=== PATIENT | female | born 1945 | race Caucasian/White ===

== ENCOUNTER 2016-07-24 10:04 | Inpatient (IN) | payer MEDICARE, MEDICAID ==
[~2016-07-24] VITALS: Ht 160 cm; Wt 55.7 kg
[~2016-07-24 10:04] MED LIST: ARICEPT10 MG PO; BACLOFEN10 MG PO; BACTRIM DS 8001 TAB PO; CLARITIN10 MG PO; LEXAPRO10 MG PO; MACROBID 1100 MG/CAP PO; MULTIPLE VITAMI1 CAP PO; NEURONTIN100 MG PO; RISPERDAL0.5 MG PO; UNABLE; ZOCOR20 MG PO
[2016-07-24] MEDS ORDERED: [UNRECOGNIZED DRUG - OTHER] (10:29)
[2016-07-24] MEDS ORDERED: MULTI VITAMINS1 TAB PO (10:30)
[2016-07-24] MEDS ORDERED: ARICEPT10 MG PO (10:30)
[2016-07-24] MEDS ORDERED: ZOCOR 20MG20 MG PO (10:30)
[2016-07-24] MEDS ORDERED: LIORESAL20 MG PO (10:31)
[2016-07-24] MEDS ORDERED: NEURONTIN100 MG/CAP PO (10:31)
[2016-07-24] MEDS ORDERED: COLACE 100100 MG/CAP PO (10:32)
[2016-07-24 10:34] LABS: INR 1.3 (0.8-3.0); PROTHROMBIN TIME 14.8 SECONDS (9.7-12.8)
[2016-07-24 10:37] LABS: PARTIAL THROMBOPLASTIN TIME 33.9 SECONDS (26.0-37.0)
[2016-07-24 10:38] LABS: BASO % 0.3 % (0.0-2.0); EOS % 0.2 % (0-4.0); GRAN # 10.4 (1.4-6.5); GRAN % 90.5 % (42.2-75.2); HEMATOCRIT 41.3 % (37.0-47.0); HEMOGLOBIN 12.8 g/dl (12.5-16.0); LYMPH # 0.3 (1.2-3.4); LYMPH % 2.7 % (20.0-51.0); MEAN CELL VOLUME 81 fl (80.0-100.0); MEAN CORPUSCULAR HEMOGLOBIN 25 pg (27.0-31.0); MEAN CORPUSCULAR HGB CONC 31 g/dl (33.0-37.0); MEAN PLATELET VOLUME 10.8 fl (7.4-10.4); MONO # 0.7 (0.1-0.6); MONO % 5.6 % (1.7-9.3); PLATELET COUNT 231 K/mm3 (130-400); RED BLOOD COUNT 5.08 M/mm3 (4.10-5.30); REDCELL DISTRIBUTION WIDTH-CV 15.8 % (11.5-14.5); WHITE BLOOD COUNT 11.5 K/mm3 (4.8-10.8)
[2016-07-24 10:47] LABS: ADJUSTED CALCIUM 9.3 mg/dL (8.4-10.2); ALBUMIN 4.1 gm/dL (3.5-5.0); BILIRUBIN,TOTAL 0.6 mg/dL (0.0-1.0); C-REACTIVE PROTEIN 7.1 mg/dL (0.0-0.9); CALCIUM 9.4 mg/dL (8.4-10.2); CREATININE, serum 0.92 mg/dL (0.52-1.25); POTASSIUM 3.7 mmol/L (3.4-5.0); TOTAL PROTEIN 7.7 gm/dL (6.4-8.2)
[2016-07-24 11:00] LABS: ADD PATHOLOGY DIFF REVIEW NO
[2016-07-24 12:05] LABS: ANISOCYTOSIS 1+; BAND 19 % (0-10); NEUTROPHILS 72 % (42.0-75.2); PLATELET ESTIMATE NORMAL (NORMAL); TOTAL CELLS COUNTED 100
[2016-07-24 12:56] LABS: PH 9 (5-8); SQUAMOUS EPITHELIAL None Seen /hpf; URINE APPEARANCE Hazy; URINE BACTERIA Rare /hpf; URINE BILIRUBIN Negative (NEGATIVE); URINE BLOOD 2+ (NEGATIVE); URINE COLOR Yellow; URINE GLUCOSE Negative (NEGATIVE); URINE KETONE Negative (NEGATIVE); URINE UROBILINOGEN Negative (NEGATIVE); URINE WBC >50 /hpf
[2016-07-24 14:58] VITALS: BP 103/63; PULSE 83; TEMP 98.2
[2016-07-24 16:00] VITALS: BP 95/64; PULSE 72; TEMP 98.3
[2016-07-24 19:45] VITALS: BP 94/72; PULSE 74; TEMP 97.6
[2016-07-25] VITALS (7 sets, daily range): BP systolic 91–123; BP diastolic 56–74; PULSE 72–84; TEMP 96.1–99.3
[2016-07-25 05:48] LABS: BASO % 0.1 % (0.0-2.0); EOS # 0.1 (0.0-0.7); EOS % 1.5 % (0-4.0); GRAN # 7.1 (1.4-6.5); GRAN % 80.1 % (42.2-75.2); LYMPH % 11.3 % (20.0-51.0); MEAN CELL VOLUME 84 fl (80.0-100.0); MEAN CORPUSCULAR HGB CONC 30 g/dl (33.0-37.0); MEAN PLATELET VOLUME 10.4 fl (7.4-10.4); MONO # 0.6 (0.1-0.6); MONO % 6.4 % (1.7-9.3); PLATELET COUNT 206 K/mm3 (130-400); RED BLOOD COUNT 4.03 M/mm3 (4.10-5.30); REDCELL DISTRIBUTION WIDTH-CV 16.1 % (11.5-14.5); WHITE BLOOD COUNT 8.8 K/mm3 (4.8-10.8)
[2016-07-25 05:49] LABS: HEMATOCRIT 33.7 % (37.0-47.0); HEMOGLOBIN 10.2 g/dl (12.5-16.0); MEAN CORPUSCULAR HEMOGLOBIN 25 pg (27.0-31.0)
[2016-07-25 05:56] LABS: ADJUSTED CALCIUM 9.2 mg/dL (8.4-10.2); ALBUMIN 3.2 gm/dL (3.5-5.0); BILIRUBIN,TOTAL 0.4 mg/dL (0.0-1.0); CALCIUM 8.6 mg/dL (8.4-10.2); CREATININE, serum 0.78 mg/dL (0.52-1.25); POTASSIUM 3.5 mmol/L (3.4-5.0); TOTAL PROTEIN 6.2 gm/dL (6.4-8.2)
[2016-07-26 03:53] VITALS: BP 119/70; PULSE 77; TEMP 97.6
[2016-07-26 08:10] LABS: BASO % 0.2 % (0.0-2.0); EOS # 0.2 (0.0-0.7); EOS % 3.6 % (0-4.0); GRAN % 69.7 % (42.2-75.2); LYMPH # 1.2 (1.2-3.4); LYMPH % 20.3 % (20.0-51.0); MEAN CELL VOLUME 84 fl (80.0-100.0); MEAN CORPUSCULAR HGB CONC 30 g/dl (33.0-37.0); MEAN PLATELET VOLUME 10.4 fl (7.4-10.4); MONO # 0.3 (0.1-0.6); MONO % 5.5 % (1.7-9.3); PLATELET COUNT 248 K/mm3 (130-400); RED BLOOD COUNT 4.29 M/mm3 (4.10-5.30); WHITE BLOOD COUNT 5.8 K/mm3 (4.8-10.8)
[2016-07-26 08:14] LABS: HEMATOCRIT 35.9 % (37.0-47.0); HEMOGLOBIN 10.8 g/dl (12.5-16.0); MEAN CORPUSCULAR HEMOGLOBIN 25 pg (27.0-31.0)
[2016-07-26 08:27] LABS: ALBUMIN 3.3 gm/dL (3.5-5.0); CREATININE, serum 0.78 mg/dL (0.52-1.25); PHOSPHOROUS 3.9 mg/dL (2.5-4.5); POTASSIUM 3.4 mmol/L (3.4-5.0)
[2016-07-26 08:36] VITALS: BP 145/82; PULSE 79; TEMP 97.7
[2016-07-26 13:44] VITALS: BP 140/72; PULSE 103; TEMP 98
[2016-07-26 16:24] VITALS: BP 112/54; PULSE 93; TEMP 98.4
[2016-07-26 19:34] VITALS: BP 120/64; PULSE 90; TEMP 98.7
[2016-07-27] VITALS (7 sets, daily range): BP systolic 106–147; BP diastolic 62–94; PULSE 65–87; TEMP 98.2–99.7
[2016-07-28 03:40] VITALS: BP 115/85; PULSE 74; TEMP 100.7
[2016-07-28 08:10] VITALS: BP 124/68; PULSE 64; TEMP 98
[2016-07-28 11:50] VITALS: BP 134/64; PULSE 54; TEMP 98.4
[2016-07-28] MEDS ORDERED: AMOXICILLIN 8751 TAB PO (13:29)
[2016-07-28 15:12] VITALS: BP 134/64; PULSE 54; TEMP 98.4
== END 2016-07-28 16:12 | DRG 698 ==
LOC: COL.ER 10:04 → IMCU 14:14 → MEDICAL 07-25 17:31
PROVIDERS: Emergency Medicine; Internal Medicine
DX: T83.511A Infection and inflammatory reaction due to indwelling urethral catheter, initial encounter (principal); A41.89 Other specified sepsis; A52.17 General paresis; T83.021A Displacement of indwelling urethral catheter, initial encounter; G35 Multiple sclerosis; N31.9 Neuromuscular dysfunction of bladder, unspecified; L89.892 Pressure ulcer of other site, stage 2; F03.90 Unspecified dementia, unspecified severity, without behavioral disturbance, psychotic disturbance, mood disturbance, and anxiety; F32.89 Other specified depressive episodes; B95.2 Enterococcus as the cause of diseases classified elsewhere
CPT/HCPCS: 90791-AI; 99232-AI; 99233-AI; 99238; J0696; J1650; J7030

== ENCOUNTER 2017-06-29 06:03 | Emergency (ER) | payer MEDICARE, MEDICAID ==
[~2017-06-29] VITALS: Ht 165.1 cm; Wt 68.2 kg
[2017-06-29 06:03] VITALS: TEMP 97.9
[~2017-06-29 06:03] MED LIST changes: +AMOXICILLIN 8751 TAB PO; +COLACE 100100 MG/CAP PO; +LIORESAL20 MG PO; +MULTI VITAMINS1 TAB PO; +NEURONTIN100 MG/CAP PO; +ZOCOR 20MG20 MG PO; +[UNRECOGNIZED DRUG - OTHER]
[2017-06-29 07:44] VITALS: BP 119/81; PULSE 75
== END 2017-06-29 09:46 | disposition home or self-care (01) ==
LOC: COL.ER 06:03
DX: M25.512 Pain in left shoulder (principal); R51 Headache; R40.2412 Glasgow coma scale score 13-15, at arrival to emergency department; F03.90 Unspecified dementia, unspecified severity, without behavioral disturbance, psychotic disturbance, mood disturbance, and anxiety; E78.5 Hyperlipidemia, unspecified; G35 Multiple sclerosis; G83.10 Monoplegia of lower limb affecting unspecified side; W06.XXXA Fall from bed, initial encounter; Y92.129 Unspecified place in nursing home as the place of occurrence of the external cause

== ENCOUNTER → 2018-03-03 | Outpatient (CLI) | payer MEDICARE, MEDICAID | LOC: COL.RAD 07:30 | DX: M34.0 Progressive systemic sclerosis (principal); M41.86 Other forms of scoliosis, lumbar region; G31.9 Degenerative disease of nervous system, unspecified; G95.9 Disease of spinal cord, unspecified; M43.12 Spondylolisthesis, cervical region; M47.814 Spondylosis without myelopathy or radiculopathy, thoracic region | CPT/HCPCS: A9585 ==

== ENCOUNTER 2018-04-03 22:39 | Inpatient (IN) | payer MEDICARE, MEDICAID ==
[~2018-04-03] VITALS: Ht 157.5 cm; Wt 64.4 kg
[~2018-04-03 22:39] MED LIST changes: -[UNRECOGNIZED DRUG - OTHER]; +[UNRECOGNIZED DRUG - OTHER] TP
[2018-04-03 23:39] LABS: COLLECTION METHOD CATHETER
[2018-04-03 23:41] LABS: BASO % 0.2 % (0.0-2.0); EOS # 0.1 (0.0-0.7); EOS % 0.6 % (0-4.0); GRAN # 8.6 (1.4-6.5); GRAN % 76.8 % (42.2-75.2); HEMOGLOBIN 12.6 g/dl (12.5-16.0); LYMPH # 1.6 (1.2-3.4); LYMPH % 14.2 % (20.0-51.0); MEAN CELL VOLUME 87 fl (80.0-100.0); MEAN CORPUSCULAR HEMOGLOBIN 27 pg (27.0-31.0); MEAN CORPUSCULAR HGB CONC 31 g/dl (33.0-37.0); MEAN PLATELET VOLUME 10.5 fl (7.4-10.4); MONO # 0.9 (0.1-0.6); MONO % 7.8 % (1.7-9.3); PLATELET COUNT 246 K/mm3 (130-400); RED BLOOD COUNT 4.73 M/mm3 (4.10-5.30)
[2018-04-03 23:49] LABS: PH 9 (5-8); SQUAMOUS EPITHELIAL None Seen /hpf; URINE APPEARANCE Cloudy; URINE BACTERIA Rare /hpf; URINE BILIRUBIN Negative (NEGATIVE); URINE BLOOD Negative (NEGATIVE); URINE COLOR Yellow; URINE GLUCOSE Negative (NEGATIVE); URINE KETONE Negative (NEGATIVE); URINE LEUKOCYTE ESTERASE 3+ (NEGATIVE); URINE NITRATE Negative (NEGATIVE); URINE PROTEIN(semi-quant) 1+ (NEGATIVE); URINE UROBILINOGEN Negative (NEGATIVE)
[2018-04-03 23:55] LABS: ALANINE AMINOTRANSFERASE 53 U/L (9-52); ALBUMIN 3.6 gm/dL (3.5-5.0); ALKALINE PHOSPHATASE 152 U/L (50-136); ANION GAP 5 mmol/L (7-16); AST,SGOT 55 U/L (15-37); BILIRUBIN,TOTAL 0.3 mg/dL (0.0-1.0); BLOOD UREA NITROGEN 21 mg/dL (7-17); C-REACTIVE PROTEIN 6.1 mg/dL (0.0-0.9); CALCIUM 8.5 mg/dL (8.4-10.2); CARBON DIOXIDE 29 mmol/L (22-30); CHLORIDE 111 mmol/L (98-107); CREATININE, serum 0.81 mg/dL (0.52-1.25); GLUCOSE 110 mg/dL (74-106); POTASSIUM 4.7 mmol/L (3.4-5.0); SODIUM 144 mmol/L (137-145); TOTAL PROTEIN 6.9 gm/dL (6.4-8.2)
[2018-04-04] VITALS (9 sets, daily range): BP systolic 83–143; BP diastolic 55–86; PULSE 66–117; TEMP 98.4–100.7
[2018-04-04 00:04] LABS: TROPONIN-I < 0.012 ng/mL (0.000-0.034)
[2018-04-04 00:30] LABS: ARTERIAL BLD GAS O2 SATURATION 96.5 % (92-100); ARTERIAL BLOOD GAS BASE EXCESS -2.8 (-2-2); ARTERIAL BLOOD GAS HCO3 22.7 meq/L (22-26); ARTERIAL BLOOD GAS PCO2 42.1 mmHg (35-45); ARTERIAL BLOOD GAS PO2 92.6 mmHg (80-100); ARTERIAL BLOOD GAS pH 7.35 (7.35-7.45)
[2018-04-04] MEDS ORDERED: TYLENOL SU650 MG/SUP RC (00:52)
[2018-04-04] MEDS ORDERED: ARICEPT10 MG PO (00:53)
[2018-04-04] MEDS ORDERED: NEURONTIN300 MG/CAP PO (00:55)
[2018-04-04] MEDS ORDERED: ICAPS TABLET1 EACH PO (00:56)
[2018-04-04] MEDS ORDERED: MILK OF MA1200 MG/5 PO (00:57)
[2018-04-04] MEDS ORDERED: REMERON30 MG PO (00:58)
[2018-04-04] MEDS ORDERED: NAMENDA 10MG TA10 MG PO (00:58)
[2018-04-04] MEDS ORDERED: ULTRAM 50MG TAB50 MG PO (01:24)
[2018-04-04] MEDS ORDERED: TYLENOL 500MG500 MG PO (01:25)
[2018-04-04] MEDS ORDERED: ZOCOR 20MG20 MG PO (01:26)
[2018-04-04] MEDS ORDERED: SEROQUEL 2525 MG/TAB PO (03:26)
[2018-04-04] MEDS ORDERED: PROTEIN SUPPLEMENT PO (03:31)
[2018-04-04 04:48] LABS: BASO % 0.3 % (0.0-2.0); EOS # 0.1 (0.0-0.7); GRAN # 5.7 (1.4-6.5); GRAN % 60.2 % (42.2-75.2); HEMOGLOBIN 10.9 g/dl (12.5-16.0); LYMPH # 2.7 (1.2-3.4); LYMPH % 28.5 % (20.0-51.0); MEAN CELL VOLUME 88 fl (80.0-100.0); MEAN CORPUSCULAR HEMOGLOBIN 27 pg (27.0-31.0); MEAN CORPUSCULAR HGB CONC 30 g/dl (33.0-37.0); MEAN PLATELET VOLUME 10.6 fl (7.4-10.4); MONO # 0.9 (0.1-0.6); MONO % 9.8 % (1.7-9.3); PLATELET COUNT 242 K/mm3 (130-400); RED BLOOD COUNT 4.09 M/mm3 (4.10-5.30); REDCELL DISTRIBUTION WIDTH-CV 17.2 % (11.5-14.5)
[2018-04-04 04:50] LABS: HEMATOCRIT 36.1 % (37.0-47.0)
[2018-04-04 04:54] LABS: INR 1.2 (0.8-3.0); PROTHROMBIN TIME 13.6 SECONDS (9.7-12.8)
[2018-04-04 04:57] LABS: PARTIAL THROMBOPLASTIN TIME 32.7 SECONDS (26.0-37.0)
[2018-04-04 11:09] LABS: ARTERIAL BLD GAS O2 SATURATION 97.3 % (92-100); ARTERIAL BLD GAS TCO2 CT 21.7; ARTERIAL BLOOD GAS BASE EXCESS -5.4 (-2-2); ARTERIAL BLOOD GAS HCO3 20.5 meq/L (22-26); ARTERIAL BLOOD GAS PCO2 41.3 mmHg (35-45); ARTERIAL BLOOD GAS PO2 108.2 mmHg (80-100); ARTERIAL BLOOD GAS pH 7.31 (7.35-7.45)
[2018-04-05] VITALS (7 sets, daily range): BP systolic 128–141; BP diastolic 71–90; PULSE 80–92; TEMP 98.2–99.4
[2018-04-05 05:37] LABS: ARTERIAL BLD GAS O2 SATURATION 93.1 % (92-100); ARTERIAL BLD GAS TCO2 CT 27.6; ARTERIAL BLOOD GAS BASE EXCESS 0.3 (-2-2); ARTERIAL BLOOD GAS HCO3 26.1 meq/L (22-26); ARTERIAL BLOOD GAS PO2 67.3 mmHg (80-100); ARTERIAL BLOOD GAS pH 7.36 (7.35-7.45)
[2018-04-05 05:43] LABS: BASO % 0.3 % (0.0-2.0); EOS # 0.1 (0.0-0.7); EOS % 1.2 % (0-4.0); GRAN % 74.1 % (42.2-75.2); HEMATOCRIT 37.4 % (37.0-47.0); HEMOGLOBIN 11.2 g/dl (12.5-16.0); LYMPH # 1.2 (1.2-3.4); LYMPH % 17.7 % (20.0-51.0); MEAN CELL VOLUME 88 fl (80.0-100.0); MEAN CORPUSCULAR HEMOGLOBIN 26 pg (27.0-31.0); MEAN CORPUSCULAR HGB CONC 30 g/dl (33.0-37.0); MEAN PLATELET VOLUME 10.3 fl (7.4-10.4); MONO # 0.4 (0.1-0.6); MONO % 6.4 % (1.7-9.3); PLATELET COUNT 173 K/mm3 (130-400); RED BLOOD COUNT 4.25 M/mm3 (4.10-5.30)
[2018-04-05 05:48] LABS: INR 1.2 (0.8-3.0); PROTHROMBIN TIME 13.8 SECONDS (9.7-12.8)
[2018-04-05 05:59] LABS: ALBUMIN 3.3 gm/dL (3.5-5.0); BILIRUBIN,TOTAL 0.4 mg/dL (0.0-1.0); CALCIUM 8.8 mg/dL (8.4-10.2); CREATININE, serum 0.74 mg/dL (0.52-1.25); TOTAL PROTEIN 6.6 gm/dL (6.4-8.2)
[2018-04-06 00:18] VITALS: BP 145/84; PULSE 77; TEMP 98
[2018-04-06 04:10] VITALS: BP 139/89; PULSE 88; TEMP 97.1
[2018-04-06 05:42] LABS: ARTERIAL BLOOD GAS PCO2 46.8 mmHg (35-45); ARTERIAL BLOOD GAS pH 7.38 (7.35-7.45)
[2018-04-06 05:43] LABS: ARTERIAL BLD GAS O2 SATURATION 93.3 % (92-100); ARTERIAL BLOOD GAS BASE EXCESS 1.2 (-2-2); ARTERIAL BLOOD GAS HCO3 26.8 meq/L (22-26); ARTERIAL BLOOD GAS PO2 67.8 mmHg (80-100)
[2018-04-06 06:17] LABS: BASO % 0.3 % (0.0-2.0); EOS # 0.1 (0.0-0.7); EOS % 1.5 % (0-4.0); GRAN # 5.5 (1.4-6.5); GRAN % 73.4 % (42.2-75.2); HEMOGLOBIN 10.3 g/dl (12.5-16.0); LYMPH # 1.4 (1.2-3.4); LYMPH % 18.8 % (20.0-51.0); MEAN CELL VOLUME 86 fl (80.0-100.0); MEAN CORPUSCULAR HEMOGLOBIN 27 pg (27.0-31.0); MEAN CORPUSCULAR HGB CONC 31 g/dl (33.0-37.0); MEAN PLATELET VOLUME 10.1 fl (7.4-10.4); MONO # 0.4 (0.1-0.6); MONO % 5.6 % (1.7-9.3); PLATELET COUNT 209 K/mm3 (130-400); RED BLOOD COUNT 3.89 M/mm3 (4.10-5.30); REDCELL DISTRIBUTION WIDTH-CV 16.7 % (11.5-14.5)
[2018-04-06 06:21] LABS: HEMATOCRIT 33.5 % (37.0-47.0)
[2018-04-06 06:23] LABS: INR 1.2 (0.8-3.0); PROTHROMBIN TIME 13.9 SECONDS (9.7-12.8)
[2018-04-06 06:28] LABS: ALBUMIN 3.3 gm/dL (3.5-5.0); BILIRUBIN,TOTAL 0.2 mg/dL (0.0-1.0); CALCIUM 8.8 mg/dL (8.4-10.2); CREATININE, serum 0.83 mg/dL (0.52-1.25); POTASSIUM 3.3 mmol/L (3.4-5.0); TOTAL PROTEIN 6.6 gm/dL (6.4-8.2)
[2018-04-06 07:36] VITALS: BP 139/76; PULSE 78; TEMP 97.9
[2018-04-06 11:18] VITALS: BP 133/76; PULSE 85; TEMP 98.4
[2018-04-06 15:43] VITALS: BP 142/73; PULSE 99; TEMP 98.7
[2018-04-06 20:29] VITALS: BP 137/80; PULSE 83; TEMP 98.8
[2018-04-07 00:03] VITALS: BP 162/103; PULSE 85; TEMP 99.2
[2018-04-07 00:16] VITALS: BP 150/92
[2018-04-07 04:36] VITALS: BP 127/86; PULSE 79; TEMP 98.5
[2018-04-07 06:11] LABS: BASO % 0.4 % (0.0-2.0); EOS # 0.1 (0.0-0.7); GRAN # 6.4 (1.4-6.5); GRAN % 75.8 % (42.2-75.2); HEMOGLOBIN 10.6 g/dl (12.5-16.0); LYMPH # 1.3 (1.2-3.4); LYMPH % 15.7 % (20.0-51.0); MEAN CELL VOLUME 86 fl (80.0-100.0); MEAN CORPUSCULAR HEMOGLOBIN 27 pg (27.0-31.0); MEAN CORPUSCULAR HGB CONC 31 g/dl (33.0-37.0); MEAN PLATELET VOLUME 10.2 fl (7.4-10.4); MONO # 0.5 (0.1-0.6); PLATELET COUNT 234 K/mm3 (130-400); RED BLOOD COUNT 3.99 M/mm3 (4.10-5.30); REDCELL DISTRIBUTION WIDTH-CV 16.6 % (11.5-14.5)
[2018-04-07 06:12] LABS: HEMATOCRIT 34.3 % (37.0-47.0)
[2018-04-07 06:17] LABS: INR 1.2 (0.8-3.0); PROTHROMBIN TIME 13.5 SECONDS (9.7-12.8)
[2018-04-07 06:21] LABS: ALBUMIN 3.6 gm/dL (3.5-5.0); BILIRUBIN,TOTAL 0.3 mg/dL (0.0-1.0); CALCIUM 8.8 mg/dL (8.4-10.2); CREATININE, serum 0.82 mg/dL (0.52-1.25); POTASSIUM 3.4 mmol/L (3.4-5.0); TOTAL PROTEIN 6.9 gm/dL (6.4-8.2)
[2018-04-07 08:30] VITALS: BP 142/82; PULSE 82; TEMP 98.7
[2018-04-07 12:00] VITALS: BP 140/80; PULSE 80; TEMP 98
[2018-04-07] MEDS ORDERED: AMOXICILLIN 8751 TAB PO (12:21)
[2018-04-07 13:43] VITALS: BP 140/80; PULSE 80; TEMP 98
== END 2018-04-07 13:30 | DRG 698 ==
LOC: COL.ER 22:39 → ICU 04-04 00:26 → MEDICAL 04-05 14:06
PROVIDERS: Emergency Medicine; Family Medicine; Hospitalist
PROC: 02HV33Z Insertion of Infusion Device into Superior Vena Cava, Percutaneous Approach (ICD-10-PCS; principal; 2018-04-04)
DX: T83.511A Infection and inflammatory reaction due to indwelling urethral catheter, initial encounter (principal); R65.21 Severe sepsis with septic shock; J96.02 Acute respiratory failure with hypercapnia; J96.01 Acute respiratory failure with hypoxia; A41.9 Sepsis, unspecified organism; G04.1 Tropical spastic paraplegia; E87.0 Hyperosmolality and hypernatremia; Z66 Do not resuscitate; N39.0 Urinary tract infection, site not specified; F03.90 Unspecified dementia, unspecified severity, without behavioral disturbance, psychotic disturbance, mood disturbance, and anxiety; L89.312 Pressure ulcer of right buttock, stage 2; G35 Multiple sclerosis; N31.9 Neuromuscular dysfunction of bladder, unspecified; E11.9 Type 2 diabetes mellitus without complications; E78.5 Hyperlipidemia, unspecified; E87.8 Other disorders of electrolyte and fluid balance, not elsewhere classified; B96.4 Proteus (mirabilis) (morganii) as the cause of diseases classified elsewhere
CPT/HCPCS: 99223-AI; 99232-AI; 99239; G0463; J1644; J2543; J7030; J7060; J7120

== ENCOUNTER 2018-09-21 12:35 | Day surgery (SDC) | payer MEDICARE, MEDICAID ==
[~2018-09-21] VITALS: Ht 157.5 cm; Wt 113.6 kg
[~2018-09-21 12:35] MED LIST changes: +ICAPS TABLET1 EACH PO; +MILK OF MA1200 MG/5 PO; +NAMENDA 10MG TA10 MG PO; +NEURONTIN300 MG/CAP PO; +PROTEIN SUPPLEMENT PO; +REMERON30 MG PO; +SEROQUEL 2525 MG/TAB PO; +TYLENOL 500MG500 MG PO; +TYLENOL SU650 MG/SUP RC; +ULTRAM 50MG TAB50 MG PO
[2018-09-21 13:19] VITALS: BP 118/79; PULSE 84; TEMP 97.8
[2018-09-21 16:50] VITALS: BP 118/73; PULSE 88; TEMP 97.7
--- NOTE | 2018-09-21 16:50 | NUR ---
The patient appears to be resting comfortably on the cart. The patient denies any pain or nausea at this time. The patient's post operative carlos signs were started at this time. The patient has a drainage sponge around the catheter insertion site which is secured with medipore tape and appears clean, dry, and intact. Theh patient's catheter is secured to her right leg with a stat lock and set to dependent drainage with red tinged urine present in the tubing. The patient agrees to try some cranberry juice. Will continue to monitor the patient.
[2018-09-21 17:05] VITALS: BP 116/69; PULSE 79
--- NOTE | 2018-09-21 17:05 | NUR ---
The patient appears to be tolerate the juice well without any complaints of nausesa. The patient continues to deny any pain at this time. Vital signs appear stable. Will continue to monitor the patient.
[2018-09-21 17:20] VITALS: BP 126/79; PULSE 79
--- NOTE | 2018-09-21 17:20 | NUR ---
The patient has finished her juice and is being assisted to change back in her clothes at this time. The patient's IV to her left wrist was removed and a pressure dressing was applied to the site.
[2018-09-21] MEDS ORDERED: NORCO 325 MG-51 TAB PO (17:29)
[2018-09-21] MEDS ORDERED: COLACE 100100 MG/CAP PO (17:29)
[2018-09-21 17:44] VITALS: TEMP 98.3
--- NOTE | 2018-09-21 17:45 | NUR ---
The patient was transferred back to her personal wheelchair from the cart with the total lift and the assistance of three nurses and appeared to tolerate the activity well.
[2018-09-21 17:57] VITALS: BP 118/73; PULSE 87
--- NOTE | 2018-09-21 18:10 | NUR ---
The patient was escorted out to the transportation vehicle by RILEY Glynn via her personal wheelchair at this time. The patient's belongings and discharge paperwork were sent with her. The independent driver is present to drive her back to the [facility].
--- NOTE | 2018-09-21 18:20 | NUR ---
Report was called to Francy, the nurse who will be assuming the care of the patient, at the [facility]. She veberalized understanding and questions were answered at this time.
== END 2018-09-21 18:20 ==
LOC: SDCO 12:35
DX: N31.9 Neuromuscular dysfunction of bladder, unspecified (principal); R32 Unspecified urinary incontinence; Z79.899 Other long term (current) drug therapy; G35 Multiple sclerosis; E11.9 Type 2 diabetes mellitus without complications; Z87.440 Personal history of urinary (tract) infections; F03.90 Unspecified dementia, unspecified severity, without behavioral disturbance, psychotic disturbance, mood disturbance, and anxiety; F32.9 Major depressive disorder, single episode, unspecified; F31.9 Bipolar disorder, unspecified; I10 Essential (primary) hypertension; E78.00 Pure hypercholesterolemia, unspecified; E78.5 Hyperlipidemia, unspecified; Z86.19 Personal history of other infectious and parasitic diseases; Z99.3 Dependence on wheelchair
CPT/HCPCS: C1769; J0690; J1100; J2370; J2405; J2704; J3010; J7120

== ENCOUNTER 2018-10-28 11:48 | Inpatient (IN) | payer MEDICARE, MEDICAID ==
[~2018-10-28] VITALS: Ht 157.5 cm; Wt 68.1 kg
[~2018-10-28 11:48] MED LIST changes: +NORCO 325 MG-51 TAB PO
[2018-10-28 12:49] LABS: BASO % 0.2 % (0.0-2.0); EOS # 0.4 (0.0-0.7); EOS % 3.4 % (0-4.0); GRAN # 10.1 (1.4-6.5); HEMATOCRIT 45.9 % (37.0-47.0); HEMOGLOBIN 14.4 g/dl (12.5-16.0); LYMPH # 1.3 (1.2-3.4); LYMPH % 10.8 % (20.0-51.0); MEAN CELL VOLUME 86 fl (80.0-100.0); MEAN CORPUSCULAR HEMOGLOBIN 27 pg (27.0-31.0); MEAN CORPUSCULAR HGB CONC 31 g/dl (33.0-37.0); MEAN PLATELET VOLUME 10.4 fl (7.4-10.4); MONO # 0.5 (0.1-0.6); MONO % 4.3 % (1.7-9.3); PLATELET COUNT 310 K/mm3 (130-400); RED BLOOD COUNT 5.35 M/mm3 (4.10-5.30); REDCELL DISTRIBUTION WIDTH-CV 16.3 % (11.5-14.5)
[2018-10-28 12:58] LABS: COLLECTION METHOD CLEAN CATCH
[2018-10-28 12:58] LABS: INR 1.1 (0.8-3.0); PROTHROMBIN TIME 12.3 SECONDS (9.7-12.8)
[2018-10-28 13:04] LABS: ALANINE AMINOTRANSFERASE 18 U/L (9-52); ALBUMIN 4.2 gm/dL (3.5-5.0); ALKALINE PHOSPHATASE 181 U/L (50-136); ANION GAP 13 mmol/L (7-16); AST,SGOT 24 U/L (15-37); BILIRUBIN,TOTAL 0.3 mg/dL (0.0-1.0); BLOOD UREA NITROGEN 20 mg/dL (7-17); C-REACTIVE PROTEIN 5.1 mg/dL (0.0-0.9); CALCIUM 9.4 mg/dL (8.4-10.2); CARBON DIOXIDE 25 mmol/L (22-30); CHLORIDE 106 mmol/L (98-107); CREATININE, serum 0.65 (0.52-1.25); GLUCOSE 109 mg/dL (74-106); POTASSIUM 4.4 mmol/L (3.4-5.0); SODIUM 144 mmol/L (137-145)
[2018-10-28 13:07] LABS: AMORPHOUS CRYSTAL Present /uL; PH 8 (5-8); SQUAMOUS EPITHELIAL 0-2 /hpf; URINE APPEARANCE Cloudy; URINE BACTERIA Rare /hpf; URINE BILIRUBIN Negative (NEGATIVE); URINE BLOOD Negative (NEGATIVE); URINE CALCIUM OXALATE CRYSTAL Present /hpf; URINE COLOR Yellow; URINE GLUCOSE Negative (NEGATIVE); URINE KETONE Negative (NEGATIVE); URINE LEUKOCYTE ESTERASE 2+ (NEGATIVE); URINE NITRATE Negative (NEGATIVE); URINE PROTEIN(semi-quant) 1+ (NEGATIVE); URINE UROBILINOGEN Negative (NEGATIVE)
[2018-10-28 13:30] LABS: TROPONIN-I < 0.012 ng/mL (0.000-0.035)
--- NOTE | 2018-10-28 16:15 | NUR ---
Patient up from OR. Alert and oriented x 3. Linen change, patient had dawson liquid stool. Notified Hospitalist, stool appears like C-diff. Pericare provided. Patient placed in contact isolation. Suprapubic catheter in place with redness noted around site. Palacio to dependent drainage with cloudy urine present. Palacio tubing contains lots of sediment and mucus. Replaced tubing. Bilateral lower extremities with decreased muscle tone, wearing airboots. Hospitalist in to see patient. Denies pain or further needs at this time.
[2018-10-28 16:44] VITALS: BP 118/74; PULSE 103; TEMP 98.9
--- NOTE | 2018-10-28 18:23 | NUR ---
Contacted Nessa WONG, Tele called, patient HR in 116's and not decreasing. Will continue to monitor. Will report off to assembler 1st shift.
[2018-10-28 19:55] VITALS: BP 133/80; PULSE 102; TEMP 98.7
--- NOTE | 2018-10-28 20:00 | NUR ---
SHIFT ASSESSMENT COMPLETED AT 1999. PATIENT ALERT AND AWAKE DURING VISIT. REPORTS BEING VERY TIRED. SEE FLOW SHEET FOR FVS OBTAINED. MILD TACHYCARDIA. TELEMETRY MONITORING CONTINUED ORDERED. NS INFUSING AT 150ML/HR ORDERED. REPORTING GENRALIZED PAIN @ "2-3". SCHEDULED HS MEDICATIONS FOR PAIN ADMINISTERED. REPOSITIONED WITH PILLOWS. PATIENT REPORTS BEING MORE COMFORTABLE. DIET ORDER RECEIVED FROM HOSPITALIST SHAYLA. ICE WATER AND JELLO PROVIDED PER REQUEST. DENIES FURTHER NEEDS AT END OF VISIT
[2018-10-28 23:14] VITALS: BP 115/57; PULSE 98; TEMP 98.3
[2018-10-29 04:55] VITALS: BP 106/58; PULSE 93; TEMP 97.7
[2018-10-29 06:44] LABS: BASO % 0.1 % (0.0-2.0); EOS # 0.3 (0.0-0.7); EOS % 4.5 % (0-4.0); GRAN # 4.6 (1.4-6.5); GRAN % 66.3 % (42.2-75.2); HEMOGLOBIN 11.1 g/dl (12.5-16.0); LYMPH # 1.4 (1.2-3.4); LYMPH % 19.6 % (20.0-51.0); MEAN CELL VOLUME 88 fl (80.0-100.0); MEAN CORPUSCULAR HEMOGLOBIN 26 pg (27.0-31.0); MEAN CORPUSCULAR HGB CONC 30 g/dl (33.0-37.0); MEAN PLATELET VOLUME 9.9 fl (7.4-10.4); MONO # 0.7 (0.1-0.6); MONO % 9.4 % (1.7-9.3); PLATELET COUNT 211 K/mm3 (130-400); RED BLOOD COUNT 4.19 M/mm3 (4.10-5.30); REDCELL DISTRIBUTION WIDTH-CV 16.6 % (11.5-14.5)
[2018-10-29 06:53] LABS: BILIRUBIN,TOTAL 0.2 mg/dL (0.0-1.0); CALCIUM 8.2 mg/dL (8.4-10.2); CREATININE, serum 0.65 (0.52-1.25); POTASSIUM 4.1 mmol/L (3.4-5.0); TOTAL PROTEIN 5.8 gm/dL (6.4-8.2)
[2018-10-29 07:59] VITALS: BP 122/76; PULSE 96; TEMP 98.2
--- NOTE | 2018-10-29 09:55 | NUR ---
Pt continues to rest in bed. She is drowsy but arousable. She denies pain or discomfort. IVF are infusing without difficulty. Palacio cath to DD is draining without difficulty, urine is clear and yellow. Pt denies wanting any breakfast this AM. Repositioned at this time.
[2018-10-29 11:15] VITALS: BP 132/70; PULSE 89; TEMP 98.4
[2018-10-29 16:09] VITALS: BP 133/75; PULSE 87; TEMP 98.1
--- NOTE | 2018-10-29 16:12 | NUR ---
SW met with patient to discuss discharge planning. Patient lives at [facility] and plans to return there upon discharge. Patient's PCP is Dr Pérez and medications are obtained from [facility] in [place]. Patient has home O2 and uses a wheelchair. Patient does have a DPOA-HC and a copy is in the EMR. SW will continue to follow.
--- NOTE | 2018-10-29 18:02 | NUR ---
Pt has an uneventful shift. She continues to deny needs other than chapstick. Palacio cath has had good output throughout shift.
[2018-10-29 19:39] VITALS: BP 135/71; PULSE 96; TEMP 99.1
--- NOTE | 2018-10-29 20:30 | NUR ---
Shift assessment complete. Pt resting in bed, awake, a&o c occasional confused/forgetfull statements, cooperative c cares. Pt c/o headache et chronic generalized pain; scheduled Ultram admin c HS meds. Pt denies any other c/o. IV patent. Tele in place. O2 per NC. Pt denies further needs at this time. Call light in reach, bed alarm on. Will monitor.
[2018-10-29 23:10] VITALS: BP 132/71; PULSE 89; TEMP 99.5
[2018-10-30 03:54] VITALS: BP 118/55; PULSE 93; TEMP 98.3
[2018-10-30 08:13] LABS: EOS # 0.4 (0.0-0.7); EOS % 4.3 % (0-4.0); GRAN # 5.9 (1.4-6.5); GRAN % 70.6 % (42.2-75.2); HEMATOCRIT 37.1 % (37.0-47.0); HEMOGLOBIN 11.1 g/dl (12.5-16.0); LYMPH # 1.4 (1.2-3.4); LYMPH % 17.2 % (20.0-51.0); MEAN CELL VOLUME 87 fl (80.0-100.0); MEAN CORPUSCULAR HEMOGLOBIN 26 pg (27.0-31.0); MEAN CORPUSCULAR HGB CONC 30 g/dl (33.0-37.0); MEAN PLATELET VOLUME 10.8 fl (7.4-10.4); MONO # 0.6 (0.1-0.6); MONO % 7.5 % (1.7-9.3); PLATELET COUNT 208 K/mm3 (130-400); RED BLOOD COUNT 4.25 M/mm3 (4.10-5.30); REDCELL DISTRIBUTION WIDTH-CV 16.2 % (11.5-14.5)
[2018-10-30 08:22] LABS: ALBUMIN 3.3 gm/dL (3.5-5.0); BILIRUBIN,TOTAL 0.2 mg/dL (0.0-1.0); CALCIUM 8.7 mg/dL (8.4-10.2); CREATININE, serum 0.67 (0.52-1.25); POTASSIUM 3.3 mmol/L (3.4-5.0); TOTAL PROTEIN 6.5 gm/dL (6.4-8.2)
[2018-10-30 08:30] VITALS: BP 114/65; PULSE 85; TEMP 98.4
--- NOTE | 2018-10-30 09:12 | NUR ---
Pt awake and alert upon entry, no C/O pain at this time, shift assessments complete, left Pt call light in reach, bed in lowest position.
[2018-10-30] MEDS ORDERED: CEFTIN500 MG PO (09:28)
[2018-10-30] MEDS ORDERED: ULTRAM 50MG TAB50 MG PO (09:34)
[2018-10-30] MEDS ORDERED: NORCO 325 MG-51 TAB PO (09:34)
--- NOTE | 2018-10-30 11:06 | NUR ---
JUAN R update, patient scheduled to DC today to [place]. JUAN R sent and awaiting transport time. Will [facility] staff and family of status. Nurse to Nurse will need to be completed at opt 2 Tisha
--- NOTE | 2018-10-30 13:33 | NUR ---
Pt discharged to senior living in [place], escorted to vehicle by this nurse, left via facilities transportation, called report to the nursing department.
== END 2018-10-30 13:59 | disposition home or self-care (01) | DRG 698 ==
LOC: COL.ER 11:48 → MEDICAL 13:42
PROVIDERS: Emergency Medicine; Nurse Practitioner Family; ADMIT Student in an Organized Health Care Education/Training Program
DX: T83.511A Infection and inflammatory reaction due to indwelling urethral catheter, initial encounter (principal); A41.9 Sepsis, unspecified organism; G11.4 Hereditary spastic paraplegia; E87.2 Acidosis; N39.0 Urinary tract infection, site not specified; G35 Multiple sclerosis; L89.90 Pressure ulcer of unspecified site, unspecified stage; F31.9 Bipolar disorder, unspecified; H35.30 Unspecified macular degeneration; Y84.6 Urinary catheterization as the cause of abnormal reaction of the patient, or of later complication, without mention of misadventure at the time of the procedure; E87.6 Hypokalemia; B96.4 Proteus (mirabilis) (morganii) as the cause of diseases classified elsewhere; E78.00 Pure hypercholesterolemia, unspecified; N31.9 Neuromuscular dysfunction of bladder, unspecified; R53.81 Other malaise; E11.9 Type 2 diabetes mellitus without complications; Z99.81 Dependence on supplemental oxygen; Z79.891 Long term (current) use of opiate analgesic
CPT/HCPCS: 99222-AI; 99232-AI; 99239; A4216; A9284; J0692; J0696; J1650; J7030

== ENCOUNTER 2019-01-03 14:41 | Day surgery (SDC) | payer MEDICARE, MEDICAID ==
[~2019-01-03] VITALS: Ht 157.5 cm; Wt 66.4 kg
[~2019-01-03 14:41] MED LIST changes: +CEFTIN500 MG PO
--- NOTE | 2019-01-03 15:00 | NUR ---
Patient SpO2 level was between 89-92% on room air during admission vital signs. Patient placed on 2L nasal cannula.
[2019-01-03] MEDS ORDERED: ARICEPT10 MG PO (15:23)
[2019-01-03] MEDS ORDERED: [UNRECOGNIZED DRUG - OTHER] PO (15:27)
[2019-01-03] MEDS ORDERED: PROTEIN SUPPLEMENT PO (15:29)
[2019-01-03 15:56] VITALS: BP 114/68; PULSE 95; TEMP 98.3
--- NOTE | 2019-01-03 16:01 | NUR ---
Initial visit; Prayer request prior to surgical procedure. Storage Facility Housekeeper offered prayer and Susie joined her in saying the Lord's Prayer.
--- NOTE | 2019-01-03 17:30 | NUR ---
Dr Mendoza into see patient at this time.
[2019-01-03 18:12] VITALS: BP 104/63; PULSE 86; TEMP 99
--- NOTE | 2019-01-03 18:12 | NUR ---
Patient arrives back to SDC alert, denies pain or nausea. Patient monitor applied, vitals stable and within normal limits of arrival/baseline vitals. Dressing clean/dry/intact. Patient given tea, juice and muffin.
[2019-01-03 18:30] VITALS: BP 115/68; PULSE 89
[2019-01-03] MEDS ORDERED: NORCO 325 MG-51 TAB PO (18:32)
[2019-01-03] MEDS ORDERED: COLACE 100100 MG/CAP PO (18:33)
--- NOTE | 2019-01-03 18:40 | NUR ---
Patient tolerates tea, juice, muffin and jello without any nausea, denies pain.
--- NOTE | 2019-01-03 18:45 | NUR ---
Patient report called to nurse Francy at [facility] at this time.
--- NOTE | 2019-01-03 18:55 | NUR ---
Patient transfered from cart back to patient's wheelchair with lift without any complications. Patient did have a bowel movement during transfer and was cleaned up. Snf staff notified.
--- NOTE | 2019-01-03 19:00 | NUR ---
[facility] transportation staff here and assumes care for patient at this time. [facility] staff given patient's packed of dismissal instructions. Patient leaves thanking staff for services.
== END 2019-01-03 19:00 ==
LOC: SDCO 14:41
DX: N31.9 Neuromuscular dysfunction of bladder, unspecified (principal); Z46.6 Encounter for fitting and adjustment of urinary device; E78.00 Pure hypercholesterolemia, unspecified; I10 Essential (primary) hypertension; G35 Multiple sclerosis; G11.4 Hereditary spastic paraplegia; E78.5 Hyperlipidemia, unspecified; M62.562 Muscle wasting and atrophy, not elsewhere classified, left lower leg; M62.561 Muscle wasting and atrophy, not elsewhere classified, right lower leg; F03.90 Unspecified dementia, unspecified severity, without behavioral disturbance, psychotic disturbance, mood disturbance, and anxiety; F31.9 Bipolar disorder, unspecified; H35.30 Unspecified macular degeneration; E11.319 Type 2 diabetes mellitus with unspecified diabetic retinopathy without macular edema; Z79.899 Other long term (current) drug therapy; Z79.891 Long term (current) use of opiate analgesic; Z86.19 Personal history of other infectious and parasitic diseases
CPT/HCPCS: C1769; J2704; J7030

== ENCOUNTER 2019-01-19 12:11 | Inpatient (IN) | payer MEDICARE, MEDICAID ==
[~2019-01-19] VITALS: Wt 69.6 kg
[~2019-01-19 12:11] MED LIST changes: +[UNRECOGNIZED DRUG - OTHER] PO
[2019-01-19 14:48] LABS: BASO % 0.3 % (0.0-2.0); EOS # 0.2 (0.0-0.7); EOS % 2.1 % (0-4.0); GRAN # 7.8 (1.4-6.5); GRAN % 77.7 % (42.2-75.2); HEMATOCRIT 42.5 % (37.0-47.0); HEMOGLOBIN 12.8 g/dl (12.5-16.0); LYMPH # 1.4 (1.2-3.4); LYMPH % 13.4 % (20.0-51.0); MEAN CELL VOLUME 86 fl (80.0-100.0); MEAN CORPUSCULAR HEMOGLOBIN 26 pg (27.0-31.0); MEAN CORPUSCULAR HGB CONC 30 g/dl (33.0-37.0); MEAN PLATELET VOLUME 10.7 fl (7.4-10.4); MONO # 0.6 (0.1-0.6); MONO % 6.1 % (1.7-9.3); PLATELET COUNT 199 K/mm3 (130-400); RED BLOOD COUNT 4.92 M/mm3 (4.10-5.30); REDCELL DISTRIBUTION WIDTH-CV 16.3 % (11.5-14.5)
[2019-01-19 14:51] LABS: INR 1.2 (0.8-3.0); PROTHROMBIN TIME 13.6 SECONDS (9.7-12.8)
[2019-01-19 15:47] LABS: MUCOUS Present /lpf; PH 6 (5-8); SQUAMOUS EPITHELIAL None Seen /hpf; URINE APPEARANCE Hazy; URINE BACTERIA Occasional /hpf; URINE BILIRUBIN Negative (NEGATIVE); URINE BLOOD Negative (NEGATIVE); URINE COLOR Yellow; URINE GLUCOSE Negative (NEGATIVE); URINE KETONE Negative (NEGATIVE); URINE LEUKOCYTE ESTERASE 3+ (NEGATIVE); URINE NITRATE Negative (NEGATIVE); URINE PROTEIN(semi-quant) 1+ (NEGATIVE); URINE UROBILINOGEN Negative (NEGATIVE)
[2019-01-19 16:11] LABS: ALANINE AMINOTRANSFERASE 25 U/L (9-52); ALBUMIN 4.1 gm/dL (3.5-5.0); ALKALINE PHOSPHATASE 190 U/L (50-136); ANION GAP 11 mmol/L (7-16); AST,SGOT 43 U/L (15-37); BILIRUBIN,TOTAL 0.3 mg/dL (0.0-1.0); BLOOD UREA NITROGEN 32 mg/dL (7-17); CALCIUM 9.2 mg/dL (8.4-10.2); CARBON DIOXIDE 31 mmol/L (22-30); CHLORIDE 102 mmol/L (98-107); CREATININE, serum 1.83 (0.52-1.25); GLUCOSE 105 mg/dL (74-106); LIPASE 17 U/L (23-300); POTASSIUM 4.8 mmol/L (3.4-5.0); SODIUM 143 mmol/L (137-145); TOTAL PROTEIN 8.4 gm/dL (6.4-8.2)
[2019-01-19 16:20] LABS: TROPONIN-I < 0.012 ng/mL (0.000-0.035)
[2019-01-19 16:22] LABS: C-REACTIVE PROTEIN 18.3 mg/dL (0.0-0.9)
--- NOTE | 2019-01-19 18:28 | NUR ---
Pt arrives to medical unit rm [id number] from ED via cart. JOSE Baltazar at bedside now for admission assessment.
[2019-01-19] MEDS ORDERED: ACETIC ACID (18:56)
[2019-01-19] MEDS ORDERED: GOOD NEIGH1200 MG/15 PO (18:59)
[2019-01-19 19:19] VITALS: BP 115/63; PULSE 102; TEMP 97.2
[2019-01-19 19:24] VITALS: BP 115/63; PULSE 102; TEMP 97.2
[2019-01-19 20:43] VITALS: TEMP 100.1
--- NOTE | 2019-01-19 23:46 | NUR ---
Patient in bed, occasionally hollering out. Spastic movements noted. Per sister, Susan, these spasms are a result of her MS dx. Patient able to state her name, but unable to state time or place. Neuro check partially completed d/t patient unable to follow directions to open her eyes. Weak grasp noted in left hand, unable to grasp with right hand. Only spastic movement noted in BLE. Heels and feet dry/intact, no redness noted. Boots placed on bilateral feet. Patient turned to right side with pillow support. Rectal tylenol given for low grade fever 100.1 (AXY). Small BM noted when turning patient to administer tylenol. Mepilex on lower right buttock, stage 1 pressure ulcer. Buttocks and coccyx noted to be reddened, but blanches. Tegaderm from SNF noted on left upper thigh. Tegaderm removed. Blood blister and/or abrasion noted underneath. Mepilex placed. Suprapubic catheter site cleansed, uli-care also provided. Mouth care provided, lips moistened. Patient appears comfortable. Will continue to monitor.
[2019-01-20] VITALS (7 sets, daily range): BP systolic 108–157; BP diastolic 54–89; PULSE 66–105; TEMP 97–98.7
--- NOTE | 2019-01-20 02:24 | NUR ---
PTFINALLY RESTING WELL AND NURSING ASK NOT TO WAKE HER .
--- NOTE | 2019-01-20 06:17 | NUR ---
Patient in bed, sleeping. Appears comfortable. Turned to left side with pillows. Will continue to monitor.
--- NOTE | 2019-01-20 09:37 | NUR ---
Pt awake upon entry, no C/O pain at this time, shift assessments complete, left Pt call light in reach, bed in lowest position.
--- NOTE | 2019-01-20 10:04 | NUR ---
JUAN R met with the patient to discuss discharge plan. The patient resides at [facility] for long-term care. She states that she uses her wheelchair at all times. Her PCP is Dr. Braxton Pérez and her DPOA-HC is in EMR. Her DPOA-HC is her brother, Yaron Miner (ph#[phone]) and the alternate is her sister, Susan Rolon (ph#[phone]). The patient reports that she plans to return back to [facility] upon discharge. JUAN R presented and explained the Patient Choice Form to the patient. The patient verbalized understanding, gave SW her verbal consent, and she was provided a copy. JUAN R contacted and confirmed plan from the patient's brother, Yaron. JUAN R attempted to contact Tere at [facility]. JUAN R left a voicemail and faxed [place] updates. JUAN R to continue to follow.
[2019-01-20 11:48] LABS: COLLECTION METHOD CATHETER
--- NOTE | 2019-01-20 12:52 | NUR ---
Initial visit; It Operations Analyst introduced herself to patient who appeared to be aware of what It Operations Analyst was saying. It Operations Analyst offered God's blessings to Iza.
--- NOTE | 2019-01-20 18:59 | NUR ---
Pt rsted in room today, no C/O pain, VS have remained stable.
--- NOTE | 2019-01-20 20:00 | NUR ---
Incontinent of bowel. Cares provided. Palacio care and oral cares also provided. Assessment complete. Right lower lobe crackles, otherwise clear. Suprapubic catheter present-cloudy, yellow urine at this time. Patient coccyx region erythema present-blanchable. Left thigh abrasion with dressing CDI. Right buttock reported stage one pressure ulcer-dressing to area is CDI at this time. Will reassess if dressing change needed. Patient alert unable to state place and day. IV left wrist without complications at this time. Will reposition Q2H. Denies needs at this time. Call light in reach.
--- NOTE | 2019-01-21 00:30 | NUR ---
Repositioned at this time. Patient incontinent of stool. Cares provided. Repositioned. Oral care complete. Denies needs at this time. Call light in reach.
--- NOTE | 2019-01-21 02:09 | NUR ---
Resting in bed. Repositioned. Denies needs. Call light in reach.
[2019-01-21 02:53] VITALS: BP 148/90; PULSE 91; TEMP 98.4
--- NOTE | 2019-01-21 04:00 | NUR ---
Resting in bed. Denies needs. Repositioned. Call light in reach.
--- NOTE | 2019-01-21 06:28 | NUR ---
Patient repositioned and oral care provided Q2H as ordered. Patient had x3 bowel movements throughout night with incontinent cares provided each time. Resting in bed this AM. Recently repositioned. Denies needs at this time. Call light in reach.
[2019-01-21 07:02] LABS: BASO % 0.2 % (0.0-2.0); EOS % 0.2 % (0-4.0); GRAN # 4.5 (1.4-6.5); GRAN % 79.6 % (42.2-75.2); LYMPH # 0.8 (1.2-3.4); LYMPH % 13.9 % (20.0-51.0); MEAN CELL VOLUME 87 fl (80.0-100.0); MEAN CORPUSCULAR HGB CONC 30 g/dl (33.0-37.0); MEAN PLATELET VOLUME 10.8 fl (7.4-10.4); MONO # 0.3 (0.1-0.6); MONO % 5.9 % (1.7-9.3); PLATELET COUNT 242 K/mm3 (130-400); RED BLOOD COUNT 3.95 M/mm3 (4.10-5.30); REDCELL DISTRIBUTION WIDTH-CV 16.2 % (11.5-14.5)
--- NOTE | 2019-01-21 07:07 | NUR ---
Report given to RILEY Ahmadi
[2019-01-21 07:14] VITALS: BP 139/74; PULSE 91; TEMP 98.3
[2019-01-21 07:17] LABS: ALBUMIN 3.6 gm/dL (3.5-5.0); BILIRUBIN,TOTAL 0.2 mg/dL (0.0-1.0); CALCIUM 9.1 mg/dL (8.4-10.2); CREATININE, serum 0.81 (0.52-1.25); POTASSIUM 3.5 mmol/L (3.4-5.0); TOTAL PROTEIN 7.2 gm/dL (6.4-8.2)
[2019-01-21 07:23] LABS: HEMATOCRIT 34.3 % (37.0-47.0); HEMOGLOBIN 10.3 g/dl (12.5-16.0); MEAN CORPUSCULAR HEMOGLOBIN 26 pg (27.0-31.0)
--- NOTE | 2019-01-21 10:26 | NUR ---
Pt awake upon entry, not fully oriented, no C/O pain at this time, shift assessment complete, Pt bedding and brief changed, left Pt call light in reach, bed in lowest position, alarm on.
[2019-01-21 11:20] VITALS: BP 140/75; PULSE 89; TEMP 98.3
--- NOTE | 2019-01-21 13:44 | NUR ---
JUAN R contacted and faxed updates to [facility]. JUAN R to continue to follow.
--- NOTE | 2019-01-21 14:14 | NUR ---
PT TOO WEAK TO PERFORM IS
[2019-01-21 16:34] VITALS: BP 131/77; PULSE 90; TEMP 98.2
--- NOTE | 2019-01-21 18:24 | NUR ---
Pt rested in room today, no C/O pain, Pt not fully oriented, Urologist checked on Pt this afternoon and her catheter, he recommends leaving the current catheter in place while the site heals and will replace the catheter at a later date, Pt has no C/O pain today and VS have remained stable.
[2019-01-21 19:26] VITALS: BP 147/83; PULSE 91; TEMP 98.5
--- NOTE | 2019-01-21 21:20 | NUR ---
Patient assessed at this time. Alert and oriented with confusion. Denies having pain and discomfort. Periphera IV to left wrist flushed. Site is without redness, warmth, swelling, and pain. On oxygen at 2 L/min via NC. Denies having SOB and dyspnea. LS CTA. Respirations even and unlabored. HRR. Capillary refill is less than 3 seconds. Non-tenting skin turgor. BSAx4. Abdomen soft and non-tender. No edema noted. Mepilex dressing to left hip area CDI, and mepilex to right buttock is CDI. SCDs on. Took HS medications whole with pudding. Voices no questions, needs, or concerns at this time. Staff provide check, change, and repositioning every two hours. Suprapubic catheter care provided. Call light is within reach.
[2019-01-21 23:36] VITALS: BP 134/71; PULSE 85; TEMP 99
--- NOTE | 2019-01-22 00:18 | NUR ---
Patient had small amount of emesis in bed. Cleaned up. Denies nausea and upset stomach. LS CTA. Respirations even and unlabored. Denies SOB and dyspnea. Voices no questions, needs, or concerns at this time. Call light is within reach.
[2019-01-22 04:57] VITALS: BP 143/83; PULSE 90; TEMP 98.5
--- NOTE | 2019-01-22 05:58 | NUR ---
No further emesis this shift. Denies pain and discomfort. Staff has been providing check, change, and repositioning in bed. Suprapubic catheter continues to drain clear yellow urine via dependent drainage. Catheter care provided. Resting in bed with call light within reach.
[2019-01-22 07:28] LABS: ALBUMIN 3.6 gm/dL (3.5-5.0); BILIRUBIN,TOTAL 0.2 mg/dL (0.0-1.0); CALCIUM 8.6 mg/dL (8.4-10.2); CREATININE, serum 0.84 (0.52-1.25); TOTAL PROTEIN 7.1 gm/dL (6.4-8.2)
[2019-01-22 07:50] LABS: BASO % 0.3 % (0.0-2.0); EOS # 0.1 (0.0-0.7); EOS % 1.9 % (0-4.0); GRAN # 4.7 (1.4-6.5); GRAN % 69.1 % (42.2-75.2); HEMOGLOBIN 10.4 g/dl (12.5-16.0); LYMPH # 1.4 (1.2-3.4); LYMPH % 21.3 % (20.0-51.0); MEAN CELL VOLUME 87 fl (80.0-100.0); MEAN CORPUSCULAR HEMOGLOBIN 26 pg (27.0-31.0); MEAN CORPUSCULAR HGB CONC 30 g/dl (33.0-37.0); MEAN PLATELET VOLUME 10.8 fl (7.4-10.4); MONO # 0.4 (0.1-0.6); MONO % 6.4 % (1.7-9.3); PLATELET COUNT 256 K/mm3 (130-400); RED BLOOD COUNT 4.01 M/mm3 (4.10-5.30); REDCELL DISTRIBUTION WIDTH-CV 16.6 % (11.5-14.5)
[2019-01-22 08:38] VITALS: BP 132/66; PULSE 92; TEMP 98
[2019-01-22 12:51] VITALS: BP 118/72; PULSE 90; TEMP 100.4
--- NOTE | 2019-01-22 14:55 | NUR ---
F/U: Spoke with doctor about possible discharge today. This SW was asked to contact [facility] about transportation today. This SW spoke to Saul, who had to call this SW back because she had to find out. When Saul did call back, she reported that arrangements had been made for patient to be picked up on Thursday because they did not have weekend transport. This SW informed the doctor.
--- NOTE | 2019-01-22 15:30 | NUR ---
Pt rested well during the day, no C/O pain, some confusion during conversation, VS have remained stable.
[2019-01-22 17:49] VITALS: BP 132/82; PULSE 85; TEMP 98.5
[2019-01-22 19:35] VITALS: BP 120/68; PULSE 86; TEMP 99.4
--- NOTE | 2019-01-22 21:00 | NUR ---
Report received from RILEY Ahmadi. Patient resting in bed. Assessment complete. Upon attempting to give the patient her medications in pudding as informed works best, patient would not wake up. Was very solmnolent. Was not managing secretions as well. JUDITH Baltazar was on the floor and went in to visit with the patient. She instructed this nurse to give antibiotics IV route and she put the other medications on hold. Patients vitals were within normal limits upon checking. Patient felt very warm to the touch. Temperature was normal at 98.9. Rectal temperature obtained as well and was 98.6. When patient addressed, she will answer but falls back into a solmnolent state right after. Suction was put in room due to not being able to swallow. Will continue to monitor patients status.
[2019-01-22 21:37] LABS: ARTERIAL BLD GAS O2 SATURATION 93.8 % (92-100); ARTERIAL BLD GAS TCO2 CT 24.7; ARTERIAL BLOOD GAS BASE EXCESS -1.1 (-2-2); ARTERIAL BLOOD GAS HCO3 23.5 meq/L (22-26); ARTERIAL BLOOD GAS PCO2 38.7 mmHg (35-45)
[2019-01-22 23:30] VITALS: BP 115/67; PULSE 77; TEMP 98.4
--- NOTE | 2019-01-23 01:20 | NUR ---
When in patients room to give 0000 heparin, patient was much improved from the previous encounter. Patient was able to hold conversation, drink and swallow liquids. Patient very pleasant. Patient has been being turned Q2. Denies pain. Denies any further needs at this time. Call light within reach.
[2019-01-23 03:25] VITALS: BP 118/67; PULSE 70; TEMP 98.3
--- NOTE | 2019-01-23 05:46 | NUR ---
Patient resting in bed. Repositioned Q2. Patient is currently alert. No further needs at this time. Call light within reach.
[2019-01-23 06:34] LABS: BASO % 0.2 % (0.0-2.0); EOS # 0.3 (0.0-0.7); GRAN # 3.6 (1.4-6.5); GRAN % 61.4 % (42.2-75.2); HEMOGLOBIN 10.1 g/dl (12.5-16.0); LYMPH # 1.5 (1.2-3.4); LYMPH % 25.3 % (20.0-51.0); MEAN CELL VOLUME 88 fl (80.0-100.0); MEAN CORPUSCULAR HEMOGLOBIN 26 pg (27.0-31.0); MEAN CORPUSCULAR HGB CONC 29 g/dl (33.0-37.0); MEAN PLATELET VOLUME 10.6 fl (7.4-10.4); MONO # 0.5 (0.1-0.6); MONO % 7.8 % (1.7-9.3); PLATELET COUNT 236 K/mm3 (130-400); RED BLOOD COUNT 3.94 M/mm3 (4.10-5.30); REDCELL DISTRIBUTION WIDTH-CV 16.5 % (11.5-14.5)
[2019-01-23 06:39] LABS: HEMATOCRIT 34.6 % (37.0-47.0)
[2019-01-23 06:45] LABS: CALCIUM 8.6 mg/dL (8.4-10.2); CREATININE, serum 0.85 (0.52-1.25); POTASSIUM 3.7 mmol/L (3.4-5.0)
--- NOTE | 2019-01-23 06:50 | NUR ---
Report given to RILEY Ahmadi
--- NOTE | 2019-01-23 08:22 | NUR ---
Pt awake and alert this morning, talkative and appropriate, much less confusion, shift assessments complete, left Pt call light in reach, bed in lowest position.
[2019-01-23 09:46] VITALS: BP 140/75; PULSE 78; TEMP 97.9
[2019-01-23 11:41] VITALS: BP 91/68; PULSE 87; TEMP 98
--- NOTE | 2019-01-23 18:25 | NUR ---
Pt resting in room today, has no C/O pain, Pt had large bowel movement, this afternoon, has been more aware and alert today, VS have remained stable.
[2019-01-23 18:27] VITALS: BP 93/68; PULSE 87; TEMP 96
--- NOTE | 2019-01-23 19:04 | NUR ---
Report given to RILEY Suarez.
[2019-01-23 19:44] VITALS: BP 147/84; PULSE 88; TEMP 99.9
--- NOTE | 2019-01-23 20:50 | NUR ---
Shift assessment complete. Pt resting in bed, sleepy but easy to wake, a&o, cooperative c cares. Pt denies pain or any other c/o at this time. IV patent. O2 per NC. SP cath noted to DD, s complication. Pt denies further needs. Call light in reach, bed alarm on. Will continue to monitor.
[2019-01-23 23:52] VITALS: BP 130/70; PULSE 91; TEMP 98.3
[2019-01-24 04:03] VITALS: BP 137/69; PULSE 91; TEMP 99
[2019-01-24 06:20] LABS: BASO % 0.2 % (0.0-2.0); EOS # 0.3 (0.0-0.7); EOS % 3.8 % (0-4.0); GRAN # 5.8 (1.4-6.5); GRAN % 72.4 % (42.2-75.2); HEMATOCRIT 38.1 % (37.0-47.0); HEMOGLOBIN 11.2 g/dl (12.5-16.0); LYMPH # 1.3 (1.2-3.4); LYMPH % 15.9 % (20.0-51.0); MEAN CELL VOLUME 87 fl (80.0-100.0); MEAN CORPUSCULAR HEMOGLOBIN 26 pg (27.0-31.0); MEAN CORPUSCULAR HGB CONC 29 g/dl (33.0-37.0); MEAN PLATELET VOLUME 10.6 fl (7.4-10.4); MONO # 0.6 (0.1-0.6); MONO % 7.2 % (1.7-9.3); PLATELET COUNT 267 K/mm3 (130-400); RED BLOOD COUNT 4.38 M/mm3 (4.10-5.30); REDCELL DISTRIBUTION WIDTH-CV 15.9 % (11.5-14.5)
[2019-01-24 06:32] LABS: ALBUMIN 3.7 gm/dL (3.5-5.0); BILIRUBIN,TOTAL 0.2 mg/dL (0.0-1.0); CREATININE, serum 0.97 (0.52-1.25); POTASSIUM 3.2 mmol/L (3.4-5.0); TOTAL PROTEIN 7.1 gm/dL (6.4-8.2)
[2019-01-24 07:30] VITALS: BP 141/77; PULSE 99; TEMP 98.8
--- NOTE | 2019-01-24 09:07 | NUR ---
Pt assessment complete. Pt is sitting up in bed upon entry, she is A/O x3, unable to state who the president is. Pt's breathing is even and unlabored on 3L O2 via NC. Pt denies SOB. No pain reported. Pt repositioned frequently, has contractures and paralysis to BLE. Pillow between knees. Pt assisted with breakfast. Hakeem VILLALTA. No needs at this time.
[2019-01-24] MEDS ORDERED: IPRATROPIUM BROM3 M1 IH (10:33)
[2019-01-24 10:44] VITALS: BP 141/77; PULSE 99; TEMP 98.8
--- NOTE | 2019-01-24 10:54 | NUR ---
The patient is to discharge today, 01/24, back to [facility] for a skilled stay. Transportation to be provided by [facility]. JUAN R contacted and informed the patient's brother, Yaron, of discharge. Yaron was in agreeance to the discharge. JUAN R presented and explained the IM form to the patient. The patient verbalized understanding, signed, and she was provided a copy. No additional needs at this time.
[2019-01-24] MEDS ORDERED: CIPRO 500MG TA500 MG PO (12:02)
[2019-01-24] MEDS ORDERED: AMOXICILLIN 8751 TAB PO (12:02)
--- NOTE | 2019-01-24 12:11 | NUR ---
IV to L hand dc'd, catheter tip intact. Pt 94% on RA, sent without oxygen. Pt wheeled out of facility at this time.
[2019-01-24] MEDS ORDERED: HIPREX PO (12:41)
== END 2019-01-24 12:43 | disposition home or self-care (01) | DRG 698 ==
LOC: COL.ER 12:11 → MEDICAL 16:31
PROVIDERS: Emergency Medicine; Family Medicine; Nurse Practitioner Family; ADMIT Internal Medicine
DX: T83.518A Infection and inflammatory reaction due to other urinary catheter, initial encounter (principal); A41.9 Sepsis, unspecified organism; J96.01 Acute respiratory failure with hypoxia; G82.20 Paraplegia, unspecified; N39.0 Urinary tract infection, site not specified; G93.40 Encephalopathy, unspecified; N17.9 Acute kidney failure, unspecified; E46 Unspecified protein-calorie malnutrition; E87.1 Hypo-osmolality and hyponatremia; E11.40 Type 2 diabetes mellitus with diabetic neuropathy, unspecified; N31.9 Neuromuscular dysfunction of bladder, unspecified; E78.00 Pure hypercholesterolemia, unspecified; F31.9 Bipolar disorder, unspecified; G35 Multiple sclerosis; E11.621 Type 2 diabetes mellitus with foot ulcer; R74.0 Nonspecific elevation of levels of transaminase and lactic acid dehydrogenase [LDH]; L89.90 Pressure ulcer of unspecified site, unspecified stage; B96.4 Proteus (mirabilis) (morganii) as the cause of diseases classified elsewhere; B96.89 Other specified bacterial agents as the cause of diseases classified elsewhere; E87.6 Hypokalemia; H35.30 Unspecified macular degeneration; Z87.440 Personal history of urinary (tract) infections; Z79.891 Long term (current) use of opiate analgesic
CPT/HCPCS: 99223-AI; 99232-AI; 99239; A4216; J0692; J0696; J0744; J1644; J3480; J7030; J7070

== ENCOUNTER 2019-02-10 08:18 | Outpatient (CLI) | payer MEDICARE, MEDICAID ==
[~2019-02-10] VITALS: Ht 157.5 cm; Wt 64.6 kg
[~2019-02-10 08:18] MED LIST changes: +ACETIC ACID; +CIPRO 500MG TA500 MG PO; +GOOD NEIGH1200 MG/15 PO; +HIPREX PO; +IPRATROPIUM BROM3 M1 IH
[2019-02-10 09:17] VITALS: BP 108/72; PULSE 117; TEMP 97.5
--- NOTE | 2019-02-10 09:50 | NUR ---
Initial visit; Patient thanked Education Analyst for prayer prior to her surgical procedure. Education Analyst offered prayer, comfort and God's blessings.
[2019-02-10] MEDS ORDERED: ARICEPT10 MG PO (09:59)
[2019-02-10] MEDS ORDERED: SEROQUEL 2525 MG/TAB PO (10:07)
--- NOTE | 2019-02-10 10:11 | NUR ---
DR PLATT UPDATED ON PATIENT.
[2019-02-10 10:30] VITALS: BP 109/79; PULSE 110
--- NOTE | 2019-02-10 10:30 | NUR ---
PROCEDURE COMPLETE WITH NEW SUPRAPUBIC CATHETER. PATIENT TOLERATED PROCEDURE WELL. DR PLATT TALKED WITH PATIENT. SHE STATED SHE WAS FEELING BETTER FROM [address] PLATT STATED HE WOULD SEND HER BACK TO [facility]. ORDER TO CHANGE CATHETER IN 1 MONTH AT [facility]. TO BE CHANGED ON A THURSDAY MORNING AND IF UNABLE TO PLACE NEW CATHETER CALL DR PLATT.
--- NOTE | 2019-02-10 10:45 | NUR ---
INCONTINENT OF LOOSE STOOL. LISANDRA CARE WITH NEW DEPENDS APPLIED. CLEAR LIGHT YELLOW URINE NOTED IN CATHETER TUBING.
--- NOTE | 2019-02-10 10:55 | NUR ---
TRANSFERED BACK TO OWN WC USING TOTAL LIFT
--- NOTE | 2019-02-10 11:05 | NUR ---
DISCHARGED PER IN CARE OF HER POLICE ARTIST TRUDY FROM [facility].
== END 2019-02-10 11:05 | disposition home or self-care (01) ==
LOC: SDCO 08:18
DX: N31.2 Flaccid neuropathic bladder, not elsewhere classified (principal); K59.00 Constipation, unspecified; F32.9 Major depressive disorder, single episode, unspecified; F03.90 Unspecified dementia, unspecified severity, without behavioral disturbance, psychotic disturbance, mood disturbance, and anxiety; E78.00 Pure hypercholesterolemia, unspecified; E78.5 Hyperlipidemia, unspecified; I10 Essential (primary) hypertension; G35 Multiple sclerosis; N39.0 Urinary tract infection, site not specified

== ENCOUNTER → 2019-03-23 | Outpatient (CLI) | payer MEDICARE, MEDICAID | LOC: MC.RAD 14:45 | DX: Z12.31 Encounter for screening mammogram for malignant neoplasm of breast (principal) ==

== ENCOUNTER → 2019-04-26 | Outpatient (CLI) | payer MEDICARE, MEDICAID | LOC: COL.RAD 10:14 | DX: G35 Multiple sclerosis (principal); G31.9 Degenerative disease of nervous system, unspecified; R90.82 White matter disease, unspecified | CPT/HCPCS: A9585 ==

== ENCOUNTER 2020-03-07 07:30 | Outpatient (CLI) | payer MEDICARE, MEDICAID ==
[~2020-03-07] VITALS: Ht 157.5 cm; Wt 61.6 kg
[2020-03-07] VITALS (8 sets, daily range): BP systolic 85–102; BP diastolic 52–69; PULSE 80–92; TEMP 98–98.5
[~2020-03-07 07:30] MED LIST changes: +IMODIUM 2MG CAPS2 MG PO; +LOTRIMIN45CR TOP; +MACRODANTIN50 MG/CA1 PO; +REMERON 15M15 MG/TA1 PO; -REMERON30 MG PO; +TAMIFLU 75MG75 MG PO
--- NOTE | 2020-03-07 11:18 | NUR ---
PT seems to be tolerating Ocrevus infusion well, she has been sleeping restfully since onset of infusion. plan on waking pt to turn her at 1200. vitals have remained stable, continuous pulse ox monitoring in place. bp q30 min.
--- NOTE | 2020-03-07 12:10 | NUR ---
INCONTINENCE CARE PROVIDED. PT CLEANED OF SOFT BROWN STOOL. PERINEAL SKIN INTACT. PT HAS A DRESSING FROM 02/27 ON OLD ULCER TO RT ISCIUM. WOUND AT THIS SITE IS CLOSED AND NOT DRAINING. SKIN AT UROSTOMY OPENING IS RAW AND BLEEDING SLIGHTLY. PT ALSO HAS A RASH TO SKIN OF RT GROIN, NO OPEN OR DRAINING WOUNDS IN THIS AREA.
--- NOTE | 2020-03-07 13:19 | NUR ---
Pt is tolerating infusion well, she is resting in high fowlers now for lunch with assistance from Susy, caregiver from [facility].
[2020-03-07] MEDS ORDERED: ULTRAM 50MG TAB50 MG PO (13:51)
--- NOTE | 2020-03-07 13:52 | NUR ---
Ocrevus infusion complete at 1338. plan to monitor pt for 1 more hour. pt turned back to left side at this time. pillows cusioning legs, back and arms. pt denies any complaints at this time.
--- NOTE | 2020-03-07 14:29 | NUR ---
Pt discharge homw with SNF staff at this time.
== END 2020-03-07 14:29 | disposition home or self-care (01) ==
LOC: EUO 07:30
DX: G35 Multiple sclerosis (principal)
CPT/HCPCS: J2350; J2930; J7040

== ENCOUNTER 2020-06-22 13:54 | Emergency (ER) | payer MEDICARE, MEDICAID ==
[~2020-06-22 13:54] MED LIST changes: -TYLENOL 500MG500 MG PO; +TYLENOL 8 HR PO
[2020-06-22 14:06] VITALS: TEMP 97.6
[2020-06-22 15:03] LABS: BASO % 0.6 % (0.0-2.0); EOS # 0.1 (0.0-0.7); EOS % 2.5 % (0-4.0); GRAN # 3.2 (1.4-6.5); HEMATOCRIT 41.5 % (37.0-47.0); HEMOGLOBIN 12.5 g/dl (12.5-16.0); LYMPH # 1.3 (1.2-3.4); LYMPH % 24.1 % (20.0-51.0); MEAN CELL VOLUME 89 fl (80.0-100.0); MEAN CORPUSCULAR HEMOGLOBIN 27 pg (27.0-31.0); MEAN CORPUSCULAR HGB CONC 30 g/dl (33.0-37.0); MEAN PLATELET VOLUME 10.2 fl (7.4-10.4); MONO # 0.6 (0.1-0.6); MONO % 10.6 % (1.7-9.3); PLATELET COUNT 211 K/mm3 (130-400); RED BLOOD COUNT 4.65 M/mm3 (4.10-5.30); REDCELL DISTRIBUTION WIDTH-CV 14.8 % (11.5-14.5)
[2020-06-22 15:11] LABS: ALANINE AMINOTRANSFERASE 26 U/L (4-34); ALBUMIN 4.2 gm/dL (3.5-5.0); ALKALINE PHOSPHATASE 122 U/L (50-136); ANION GAP 8 mmol/L (7-16); AST,SGOT 27 U/L (15-37); BILIRUBIN,TOTAL 0.4 mg/dL (0.0-1.0); BLOOD UREA NITROGEN 14 mg/dL (7-17); CALCIUM 9.5 mg/dL (8.4-10.2); CARBON DIOXIDE 26 mmol/L (22-30); CHLORIDE 110 mmol/L (98-107); GLUCOSE 97 mg/dL (74-106); POTASSIUM 3.8 mmol/L (3.4-5.0); SODIUM 144 mmol/L (137-145); TOTAL PROTEIN 7.5 gm/dL (6.4-8.2)
[2020-06-22 15:23] LABS: TROPONIN-I < 0.012 ng/mL (0.000-0.035)
[2020-06-22 15:34] LABS: COLLECTION METHOD CATHETER
[2020-06-22 15:42] LABS: MUCOUS Present /lpf; PH 6 (5-8); SQUAMOUS EPITHELIAL None Seen /hpf; URINE APPEARANCE Clear; URINE BACTERIA Rare /hpf; URINE BILIRUBIN Negative (NEGATIVE); URINE BLOOD Negative (NEGATIVE); URINE COLOR Yellow; URINE GLUCOSE Negative (NEGATIVE); URINE KETONE Negative (NEGATIVE); URINE LEUKOCYTE ESTERASE 3+ (NEGATIVE); URINE NITRATE Negative (NEGATIVE); URINE PROTEIN(semi-quant) 2+ (NEGATIVE); URINE UROBILINOGEN Negative (NEGATIVE)
[2020-06-22] MEDS ORDERED: BACTRIM DS 8001 TAB PO (16:36)
[2020-06-22 16:44] VITALS: BP 164/90; PULSE 89
== END 2020-06-22 16:50 | disposition home or self-care (01) ==
LOC: COL.ER 13:54
PROVIDERS: Physician Assistant
DX: N30.91 Cystitis, unspecified with hematuria (principal); F31.9 Bipolar disorder, unspecified; G35 Multiple sclerosis; N18.9 Chronic kidney disease, unspecified; F03.90 Unspecified dementia, unspecified severity, without behavioral disturbance, psychotic disturbance, mood disturbance, and anxiety; G89.29 Other chronic pain

== ENCOUNTER 2020-09-17 09:51 | Outpatient (CLI) | payer MEDICARE, MEDICAID ==
[2020-09-17] VITALS (10 sets, daily range): BP systolic 123–154; BP diastolic 71–101; PULSE 70–89; TEMP 97.8
[~2020-09-17] VITALS: Ht 157.5 cm; Wt 70.0 kg
--- NOTE | 2020-09-17 15:30 | NUR ---
Pt is ready to go home at this time. Pt has tolerated her infusion well. pt has remained alert and oriented, with good sense of humor even though she was "bored". Pt was turned onto rt side after her first two hours. Brief was changed and pericare provided at 1500. brief was wet with urine, no stool. 850 cc was drained from pt's suprapubic catheter during her stay. Infusion was complete at 1430, and pt monitored for another hour. No signs or sx of adverse or allergic reaction. Pt has been able to eat lunch during her stay, and drink [address] Romero.
[2020-09-17] MEDS ORDERED: ABILIFY 15MG TA15 MG PO (20:02)
[2020-09-17] MEDS ORDERED: ASPIRIN E.C. 8181 MG PO (20:03)
[2020-09-17] MEDS ORDERED: BIOFREEZE 0.2%-1 GE1 TOP (20:05)
[2020-09-17] MEDS ORDERED: COGENTIN .0.5 MG/TAB PO (20:05)
[2020-09-17] MEDS ORDERED: KLONOPIN 0.5MG0.5 MG PO (20:06)
[2020-09-17] MEDS ORDERED: BROVANA15 MCG/2 M IH (20:06)
[2020-09-17] MEDS ORDERED: KLONOPIN 1MG1 MG PO (20:07)
[2020-09-17] MEDS ORDERED: FERROUS SU325 MG/TAB PO (20:12)
[2020-09-17] MEDS ORDERED: DALIRESP500 MCG PO (20:12)
[2020-09-17] MEDS ORDERED: FLONASEALLERGY NS (20:13)
[2020-09-17] MEDS ORDERED: IPRATROPIUM BROM3 M1 IH (20:13)
[2020-09-17] MEDS ORDERED: PRINIVIL20 MG PO (20:14)
[2020-09-17] MEDS ORDERED: LAMICTAL 100MG100 MG PO (20:14)
[2020-09-17] MEDS ORDERED: MULTI-VITAMIN W1 TA2 PO (20:15)
[2020-09-17] MEDS ORDERED: MELADOX NATURAL3 MG PO (20:15)
[2020-09-17] MEDS ORDERED: MIRALAX PA17 GM/Dose PO (20:15)
[2020-09-17] MEDS ORDERED: NYSTATIN POWDER30 GM TOP (20:16)
[2020-09-17] MEDS ORDERED: PRILOSEC 20MG20 MG PO (20:16)
[2020-09-17] MEDS ORDERED: K-DUR20 MEQ PO (20:17)
[2020-09-17] MEDS ORDERED: OSCAL 500 TAB500 MG PO (20:17)
[2020-09-17] MEDS ORDERED: PRISTIQ100 MG PO (20:18)
[2020-09-17] MEDS ORDERED: PREPH RC (20:18)
[2020-09-17] MEDS ORDERED: SEROQUEL 2525 MG/TAB PO (20:19)
[2020-09-17] MEDS ORDERED: RISPERDAL CONST50 MG IM (20:20)
[2020-09-17] MEDS ORDERED: RISPERDAL2 MG PO (20:21)
[2020-09-17] MEDS ORDERED: AZULFIDINE500 MG/TAB PO (20:21)
[2020-09-17] MEDS ORDERED: RISPERDAL 0.5M0.5 MG PO (20:21)
[2020-09-17] MEDS ORDERED: DEMADEX 20MG20 M1 PO (20:22)
[2020-09-17] MEDS ORDERED: DESYREL 50MG50 MG PO (20:23)
[2020-09-17] MEDS ORDERED: VALTREX1 GM PO (20:23)
[2020-09-17] MEDS ORDERED: B-12 500 MCG PO (20:24)
[2020-09-17] MEDS ORDERED: VOLTAREN GEL 1%1 TU TP (20:25)
[2020-09-17] MEDS ORDERED: YUPELRI175 MCG/3 IH (20:25)
== END 2020-09-17 15:45 | disposition home or self-care (01) ==
LOC: EUO 09:51
DX: G35 Multiple sclerosis (principal)
CPT/HCPCS: J2350; J2930; J7040

== ENCOUNTER → 2020-09-20 | Outpatient (CLI) | payer MEDICARE, MEDICAID ==
[~2020-09-20] MED LIST changes: +ABILIFY 15MG TA15 MG PO; +ASPIRIN E.C. 8181 MG PO; +AZULFIDINE500 MG/TAB PO; +B-12 500 MCG PO; +BIOFREEZE 0.2%-1 GE1 TOP; +BROVANA15 MCG/2 M IH; +COGENTIN .0.5 MG/TAB PO; +DALIRESP500 MCG PO; +DEMADEX 20MG20 M1 PO; +DESYREL 50MG50 MG PO; +FERROUS SU325 MG/TAB PO; +FLONASEALLERGY NS; +K-DUR20 MEQ PO; +KLONOPIN 0.5MG0.5 MG PO; +KLONOPIN 1MG1 MG PO; +LAMICTAL 100MG100 MG PO; +MELADOX NATURAL3 MG PO; +MIRALAX PA17 GM/Dose PO; +MULTI-VITAMIN W1 TA2 PO; +NYSTATIN POWDER30 GM TOP; +OSCAL 500 TAB500 MG PO; +PREPH RC; +PRILOSEC 20MG20 MG PO; +PRINIVIL20 MG PO; +PRISTIQ100 MG PO; +RISPERDAL 0.5M0.5 MG PO; +RISPERDAL CONST50 MG IM; +RISPERDAL2 MG PO; +VALTREX1 GM PO; +VOLTAREN GEL 1%1 TU TP; +YUPELRI175 MCG/3 IH
== END ==
LOC: MC.RAD 13:45
DX: G35 Multiple sclerosis (principal)

== ENCOUNTER 2021-06-12 10:51 | Outpatient (CLI) | payer MEDICARE, MEDICAID ==
[2021-06-12] VITALS (8 sets, daily range): BP systolic 114–141; BP diastolic 76–94; PULSE 61–82; TEMP 97.7
[~2021-06-12] VITALS: Ht 157.5 cm; Wt 80.3 kg
--- NOTE | 2021-06-12 14:30 | NUR ---
Inusion completed at this time.Pt will remain for one hour post.SNF aware
[2021-06-12] MEDS ORDERED: OCREVUS300 MG/10 IV (16:25)
[2021-06-12] MEDS ORDERED: ARICEPT10 MG PO (16:27)
[2021-06-12] MEDS ORDERED: LIORESAL20 MG PO (16:27)
[2021-06-12] MEDS ORDERED: NEURONTIN300 MG/CAP PO (16:29)
[2021-06-12] MEDS ORDERED: IMODIUM 2MG CAPS2 MG PO (16:30)
[2021-06-12] MEDS ORDERED: REMERON 15M15 MG/TA1 PO (16:32)
[2021-06-12] MEDS ORDERED: ULTRAM 50MG TAB50 MG PO (16:33)
[2021-06-12] MEDS ORDERED: ZOCOR 20MG20 MG PO (16:34)
[2021-06-12] MEDS ORDERED: VITAMIND3 5000 PO (16:34)
--- NOTE | 2021-06-12 16:45 | NUR ---
Vitals obtained every 30 minutes throughout infusion and for one hour afterwards.Vitals observed stable throughout.Moniter shut off before vitals recordered.
== END 2021-06-12 16:47 ==
LOC: EUO 10:51
DX: G35 Multiple sclerosis (principal)
CPT/HCPCS: J2350; J2930; J7040

== ENCOUNTER 2023-04-02 12:00 | Inpatient (IN) | payer MEDICARE, MEDICAID ==
[~2023-04-02] VITALS: Ht 152.4 cm; Wt 64.0 kg
[~2023-04-02 12:00] MED LIST changes: +CEPHALEXIN500 M1 PO; +OCREVUS300 MG/10 IV; +ROCEPHIN VIA1 G/VIAL IJ; +ROCEPHIN VIA1 G/VIAL IM; +TYLENOL 500MG500 MG PO; -TYLENOL 8 HR PO; +VITAMIN D 50,1.25 MG PO; +VITAMIND3 5000 PO
[2023-04-02 13:34] LABS: BASO % 0.2 % (0.0-2.0); EOS # 0.2 K/mm3 (0.0-0.7); GRAN # 17.2 K/mm3 (1.4-6.5); GRAN % 87.2 % (42.2-75.2); HEMATOCRIT 44.9 % (37.0-47.0); HEMOGLOBIN 13.5 g/dl (12.5-16.0); LYMPH # 1.4 K/mm3 (1.2-3.4); LYMPH % 7.2 % (20.0-51.0); MEAN CELL VOLUME 84 fl (80.0-100.0); MEAN CORPUSCULAR HEMOGLOBIN 25 pg (27-31); MEAN CORPUSCULAR HGB CONC 30 g/dl (33.0-37.0); MEAN PLATELET VOLUME 10.5 fl (7.4-10.4); MONO # 0.8 K/mm3 (0.1-0.6); PLATELET COUNT 310 K/mm3 (130-400); RED BLOOD COUNT 5.38 M/mm3 (4.10-5.30); REDCELL DISTRIBUTION WIDTH-CV 17.8 % (11.5-14.5)
[2023-04-02 13:39] LABS: ALBUMIN 3.9 gm/dL (3.4-4.8); BILIRUBIN,TOTAL 0.3 mg/dL (0.2-1.2); CREATININE, serum 0.88 mg/dL (0.57-1.11); POTASSIUM 4.5 mmol/L (3.5-4.5); TOTAL PROTEIN 7.8 gm/dL (6.2-8.1)
[2023-04-02 15:02] LABS: COLLECTION METHOD CLEAN CATCH
[2023-04-02 15:23] LABS: PH 6.5 (5.0-8.5); URINE APPEARANCE Clear (CLEAR/HAZY); URINE COLOR Yellow (YELLOW); URINE GLUCOSE Negative (NEGATIVE); URINE KETONE Negative (NEGATIVE); URINE NITRATE Positive (NEGATIVE); URINE PROTEIN(semi-quant) Negative (NEGATIVE); URINE UROBILINOGEN 0.2 E.U/dL (0.2-1.0)
[2023-04-02 15:24] LABS: SQUAMOUS EPITHELIAL 0-2 /hpf (0-10); URINE BACTERIA None Seen /hpf (NONE SEEN); URINE BLOOD TRACE-INTACT (NEGATIVE); URINE RBC 0-2 /hpf (0-2)
[2023-04-02 17:30] VITALS: BP 134/81; PULSE 91; TEMP 97.6
--- NOTE | 2023-04-02 17:45 | NUR ---
pt admitted to room from ED, pt transferred over to bed by slide board. pt oriented to person. vss and tele in place. INT to left wrist and right hand are patent. new mepilex applied to stage 1 coccyx injury. fall precautions in place. no needs at this time. call light in reach.
[2023-04-02] MEDS ORDERED: [UNRECOGNIZED DRUG - OTHER] TP (18:08)
[2023-04-02] MEDS ORDERED: DULCOLAX S10 MG/SUPP RC (18:09)
[2023-04-02] MEDS ORDERED: VITAMIND3 5000 PO (18:10)
[2023-04-02] MEDS ORDERED: NORCO 325 MG-51 TAB PO (18:11)
[2023-04-02 18:12] VITALS: BP_SYST 134
[2023-04-02 19:26] VITALS: BP 152/87; PULSE 75; TEMP 98
--- NOTE | 2023-04-02 19:30 | NUR ---
PATIENT BEING CHANGED BY MOLDER HAND. THIS NURSE OBTAINED SKIN ASSESSMENT. STAGE II PRESSURE INJURY TO INNER LEFT BUTTOCKS. THIS NURSE APPLIED AQUACEL DRESSING AND APPLIED BARRIER CREAM TO SURROUNDING AREAS. KRISHNAN DRAINING DEPENDENTLY WITH CLEAR, YELLOW URINE. SUPRAPUBIC CATHETER SITE IS RED, WITH NO DRAINAGE. NS RUNNING IV PER MAR. PATIENT DENIES PAIN OR NEEDS AT THIS TIME.
[2023-04-02 21:00] VITALS: BP_SYST 152
--- NOTE | 2023-04-02 22:32 | NUR ---
THIS NURSE ASSISTED PCT WITH BED CHANGE. LARGE AMOUNT OF YELLOW MALODOROUS URINE WITH SMALL AMOUNT OF LOOSE STOOL NOTED TO MILTON PAD. SMALL AMOUNT OF YELLOW URINE IN KRISHNAN BAG. NEW AQUACELL PATCH APPLIED TO BUTTOCKS.
[2023-04-02 23:42] VITALS: BP 126/74; PULSE 97; TEMP 98.1
--- NOTE | 2023-04-02 23:47 | NUR ---
PATIENT REFUSED BLOOD GLUCOSE CHECK. WILL CONT TO MONITOR.
[2023-04-03] VITALS (12 sets, daily range): BP systolic 116–153; BP diastolic 65–88; PULSE 76–93; TEMP 97.9–99.8
--- NOTE | 2023-04-03 00:22 | NUR ---
PATIENT REFUSED HEPARIN INJ. THIS NURSE EDUCATED PATIENT ON THE IMPORTANCE OF MEDICATION WHILE IN HOSPITAL. PATIENT STATED "I WON'T GET A BLOOD CLOT." DOCUMENTED MEDICATION REFUSED.
--- NOTE | 2023-04-03 07:25 | NUR ---
Bedside report recieved from JAYDEN Birch. Pt is awake in bed watching tv with no complaints. Call light within reach and fall preacautions in place.
--- NOTE | 2023-04-03 09:45 | NUR ---
Pt awake in bed watching tv. Pt alert and oriented x2. Shift assessment completed. Aquacell changed to Rt Buttock/Cocyx region with no drainage or open skin noted. Suprapubic catheter insertion site has some malodorous drainage. Suprapubic site cleansed and applied drainage gauze applied. This nurse assisted PCT Desiree with pt bedbath. Skin was thoroughly assessed and noted in shift assessment. NS infusing into Lt wrist at 75 mL/hr with no complications. INT to Rt wrist patent with no swelling, redness, or drainage noted. Call light within reach and fall precautions in place.
--- NOTE | 2023-04-03 10:36 | NUR ---
Suprabic catheter discontinued. 10 mL deflated from 20 Fr balloon. Catheter removed with tip intact. New 20 Fr suprapubic catheter placed with 10mL inflation of ballon per Dr. Mendoza orders by telephone. Sterile technique utilized. Pt tolerated well with no complaints.
--- NOTE | 2023-04-03 12:06 | NUR ---
Pt refused blood sugar check by PCT. This nurse educated pt about importance of blood sugar check and pt refused.
--- NOTE | 2023-04-03 13:27 | NUR ---
Notified Dr. Arroyo Hospitalist of patient refusal of Heparin, blood sugars, and insulin. Dr. Arroyo stated that he was okay with that and to continue SCDs. No new orders at this time.
--- NOTE | 2023-04-03 14:14 | NUR ---
D: Initial visit: Buckler And Lacer stopped in room on rounds. Pt was resting and content. A: Pt has no needs right now, but did ask for a bible. Buckler And Lacer supplied a bible to pt P: Buckler And Lacer informed pt that is she needed anything to let her nurse know. Buckler And Lacer will follow up as needed.
--- NOTE | 2023-04-03 15:49 | NUR ---
powder worker tnt met with patient to discuss discharge planning. Patient lives in [place]. Patient paused and reported she lives in an apartment by herself. PCP is [facility], preferred pharmacy is [facility]. No issues affording medications at this time. Insurance is Medicare and Medicaid [facility]. DPOA-HC is Yaron , P# [phone] then Susan. Patient reports she has a cane and oxygen. SW asked about ADLS, patient paused and stated she needed help with these. SW asked whom helps her and patient reported a staff member. SW notes patient lives in the [facility]. SW faxed clinical updates to [facility]. SW contacted the [facility] to confirm information. [facility] and has been there since 2018. Patient uses a lift and two people need to assist with this. Loan from [place] expressed she has recurrent UTIs and she becomes confused when she has them. Loan confirmed patient's DPOA is Yaron and he is aware patient is in the hospital. Loan expressed they are unable to transport over the weekend or , so the earliest patient would be transported back home is Thursday if medically clear. JUAN R notified Dr. Arroyo of the above information and he stated she would stay until Thursday as she is not medically clear to discharge today. JUAN R contacted Yaronkamillaer/DPOA. SW provided updates. Yaron expressed he would be unable to visit over the weekend due to family coming to town. JUAN R expressed she would provide updates to him on Thursday. No further concerns at this time. Discharge Plan: [facility]- SNF
[2023-04-04] VITALS (11 sets, daily range): BP systolic 122–134; BP diastolic 66–85; PULSE 69–81; TEMP 97.9–98.4
--- NOTE | 2023-04-04 05:18 | NUR ---
PT c/o headache this am, JUDITH Espana called and x1 now order rec'd for tylenol. see emar.
--- NOTE | 2023-04-04 05:20 | NUR ---
pt refused HS BGM last noc and heparin for vte. SP cath with clear, yellow urine out this am, no c/o pain other than CRAFT.
[2023-04-04 07:10] LABS: BASO % 0.1 % (0.0-2.0); EOS # 0.4 K/mm3 (0.0-0.7); EOS % 5.7 % (0.0-4.0); GRAN # 5.1 K/mm3 (1.4-6.5); GRAN % 66.9 % (42.2-75.2); LYMPH # 1.5 K/mm3 (1.2-3.4); LYMPH % 19.9 % (20.0-51.0); MEAN CELL VOLUME 83 fl (80.0-100.0); MEAN CORPUSCULAR HGB CONC 30 g/dl (33.0-37.0); MEAN PLATELET VOLUME 10.3 fl (7.4-10.4); MONO # 0.5 K/mm3 (0.1-0.6); PLATELET COUNT 230 K/mm3 (130-400); RED BLOOD COUNT 4.32 M/mm3 (4.10-5.30); REDCELL DISTRIBUTION WIDTH-CV 17.5 % (11.5-14.5)
[2023-04-04 07:13] LABS: HEMATOCRIT 35.8 % (37.0-47.0); HEMOGLOBIN 10.8 g/dl (12.5-16.0); MEAN CORPUSCULAR HEMOGLOBIN 25 pg (27-31)
[2023-04-04 07:28] LABS: ALBUMIN 3.1 gm/dL (3.4-4.8); CREATININE, serum 0.8 mg/dL (0.57-1.11); POTASSIUM 3.7 mmol/L (3.5-4.5)
--- NOTE | 2023-04-04 08:20 | NUR ---
PATIENT AWAKE WATCHING TV. PATIENT IS ALERT AND ORIENTED TO PERSON, NOT PLACE. VS WNL. SHIFT ASSESSMENT COMPLETE. TELE IN PLACE. SUPRAPUBIC CATHETER SITE IS CLEAN AND DRY. REDNESS NOTED. CLEAR, YELLOW URINE DRAINING DEPENDENTLY. PATIENT ALLOW THIS NURSE TO ADMINISTER HEPARIN SQ PER MAR. PATIENT DENIES PAIN OR DISCOMFORT. WILL MONITOR.
--- NOTE | 2023-04-04 14:07 | NUR ---
THIS NURSE WENT TO CHECK ON PATIENT. PATIENT FED SELF FOR LUNCH, EATING 100%. PATIENT DENIES PAIN OR DISCOMFORT.
[2023-04-05] VITALS (12 sets, daily range): BP systolic 99–188; BP diastolic 48–86; PULSE 68–95; TEMP 97.9–100.3
--- NOTE | 2023-04-05 07:00 | NUR ---
PT RESTING IN BED. PT IS ON RA. PT IS SR ON TELE. PT IS SLEEPY BUT ORIENTED TO SELF AND PLACE. PT HAS CALL LIGHT WITHIN REACH AND INSTRUCTED TO CALL WITH ALL NEEDS. BEDALARM ACTIVE AND FALL PRECAUTIONS IN PLACE.
[2023-04-05 08:23] LABS: BASO % 0.3 % (0.0-2.0); EOS # 0.4 K/mm3 (0.0-0.7); EOS % 5.6 % (0.0-4.0); GRAN # 4.4 K/mm3 (1.4-6.5); GRAN % 61.9 % (42.2-75.2); HEMATOCRIT 39.3 % (37.0-47.0); HEMOGLOBIN 12.1 g/dl (12.5-16.0); LYMPH # 1.8 K/mm3 (1.2-3.4); LYMPH % 24.8 % (20.0-51.0); MEAN CELL VOLUME 82 fl (80.0-100.0); MEAN CORPUSCULAR HEMOGLOBIN 25 pg (27-31); MEAN CORPUSCULAR HGB CONC 31 g/dl (33.0-37.0); MEAN PLATELET VOLUME 11.3 fl (7.4-10.4); MONO # 0.5 K/mm3 (0.1-0.6); PLATELET COUNT 226 K/mm3 (130-400); RED BLOOD COUNT 4.82 M/mm3 (4.10-5.30); REDCELL DISTRIBUTION WIDTH-CV 17.5 % (11.5-14.5)
[2023-04-05 08:44] LABS: ALBUMIN 3.3 gm/dL (3.4-4.8); CALCIUM 9.5 mg/dL (8.4-10.2); CREATININE, serum 0.94 mg/dL (0.57-1.11); MAGNESIUM 2.2 mg/dL (1.6-2.6); PHOSPHOROUS 3.7 mg/dL (2.3-4.7); POTASSIUM 4.1 mmol/L (3.5-4.5)
[2023-04-06] VITALS (11 sets, daily range): BP systolic 97–127; BP diastolic 41–88; PULSE 68–83; TEMP 97.5–99
[2023-04-06 08:06] LABS: BASO % 0.2 % (0.0-2.0); EOS # 0.5 K/mm3 (0.0-0.7); EOS % 5.3 % (0.0-4.0); GRAN # 5.6 K/mm3 (1.4-6.5); HEMATOCRIT 39.9 % (37.0-47.0); LYMPH # 1.9 K/mm3 (1.2-3.4); LYMPH % 22.3 % (20.0-51.0); MEAN CELL VOLUME 84 fl (80.0-100.0); MEAN CORPUSCULAR HEMOGLOBIN 25 pg (27-31); MEAN CORPUSCULAR HGB CONC 30 g/dl (33.0-37.0); MEAN PLATELET VOLUME 10.8 fl (7.4-10.4); MONO # 0.5 K/mm3 (0.1-0.6); PLATELET COUNT 247 K/mm3 (130-400); RED BLOOD COUNT 4.76 M/mm3 (4.10-5.30); REDCELL DISTRIBUTION WIDTH-CV 17.8 % (11.5-14.5)
[2023-04-06 08:07] LABS: ALBUMIN 3.2 gm/dL (3.4-4.8); CALCIUM 9.2 mg/dL (8.4-10.2); CREATININE, serum 0.94 mg/dL (0.57-1.11); MAGNESIUM 2.1 mg/dL (1.6-2.6); POTASSIUM 3.6 mmol/L (3.5-4.5)
--- NOTE | 2023-04-06 09:41 | NUR ---
Patient resting in bed. Alert this am. Channel turned to a [place] show, patient laughs and responds to the TV at times. Patient has a loose stool, pericares provided.new linens. Repositioned in bed and sat up for breakfast. She denies nausea and pain. K+ replacement as orderd.
--- NOTE | 2023-04-06 18:58 | NUR ---
Patient resting in bed. She did well today. Large Bm this evening. New linens and pericares given. She did well with dinner. Denies pain and nausea. New IV To Left hand started by powerhouse attendant. IV antibioitcs as ordered. ID consulted completed. Will report off to night nurse
[2023-04-07 00:42] VITALS: BP_SYST 97
[2023-04-07 04:00] VITALS: BP_SYST 114
[2023-04-07 04:40] VITALS: BP 114/67; PULSE 78; TEMP 98
[2023-04-07 06:48] LABS: BASO % 0.4 % (0.0-2.0); EOS # 0.5 K/mm3 (0.0-0.7); EOS % 6.2 % (0.0-4.0); GRAN # 4.3 K/mm3 (1.4-6.5); GRAN % 58.3 % (42.2-75.2); HEMATOCRIT 37.9 % (37.0-47.0); HEMOGLOBIN 11.5 g/dl (12.5-16.0); LYMPH # 2.1 K/mm3 (1.2-3.4); LYMPH % 28.4 % (20.0-51.0); MEAN CELL VOLUME 84 fl (80.0-100.0); MEAN CORPUSCULAR HEMOGLOBIN 25 pg (27-31); MEAN CORPUSCULAR HGB CONC 30 g/dl (33.0-37.0); MEAN PLATELET VOLUME 10.6 fl (7.4-10.4); MONO # 0.5 K/mm3 (0.1-0.6); MONO % 6.2 % (1.7-9.3); PLATELET COUNT 249 K/mm3 (130-400); RED BLOOD COUNT 4.54 M/mm3 (4.10-5.30)
[2023-04-07 07:10] LABS: ALBUMIN 3.2 gm/dL (3.4-4.8); CALCIUM 9.5 mg/dL (8.4-10.2); CREATININE, serum 0.94 mg/dL (0.57-1.11); MAGNESIUM 2.1 mg/dL (1.6-2.6); PHOSPHOROUS 3.7 mg/dL (2.3-4.7); POTASSIUM 3.4 mmol/L (3.5-4.5)
[2023-04-07 07:23] VITALS: BP 118/69; PULSE 70; TEMP 97.4
[2023-04-07 09:00] VITALS: BP_SYST 118
[2023-04-07] MEDS ORDERED: INVANZ INJ1 G/VIAL IV (09:27)
[2023-04-07] MEDS ORDERED: CUBICIN 500MG500 MG IV (09:28)
--- NOTE | 2023-04-07 16:44 | NUR ---
ornamental bronze worker was notified patient is medically cleared for discharge. JUAN R faxed clinical updates to [facility]. JUAN R contacted [facility], they had questions about what antibiotics she was going to be on as they called yesterday and was informed they would possibly be changed today. JUAN R met with Dr. Tate whom expressed the ID doctor expressed patient should be on Invans and Daptomycin. JUAN R notified [facility]. [facility] will be able to transport patient at 11 AM. JUAN R notified patient, cardiac care unit nurse, nurse and patient's DPOA-HC. Due to patient's confusion, JUAN R contacted patient's DPOA-HC and reviewed the important message from Medicare. DPOA-HC understood the form and had no concerns or questions. DPOA-HC provided verbal consent to sign the form. JUAN R wrote "verbal consent given by Yaron Miner, DPOA-HC", dated and timed the form. JUAN R placed original in the patient's chart and provided a copy to the patient. JUAN R faxed discharge orders to [facility]. Discharge Plan: SNF- [facility]
== END 2023-04-07 11:30 | DRG 698 ==
LOC: COL.ER 12:00 → SURG 15:41
PROVIDERS: Family Medicine; ADMIT Internal Medicine
DX: T83.511A Infection and inflammatory reaction due to indwelling urethral catheter, initial encounter (principal); A41.9 Sepsis, unspecified organism; R65.20 Severe sepsis without septic shock; G82.20 Paraplegia, unspecified; G93.49 Other encephalopathy; Z16.12 Extended spectrum beta lactamase (ESBL) resistance; N39.0 Urinary tract infection, site not specified; G35 Multiple sclerosis; Z66 Do not resuscitate; E78.5 Hyperlipidemia, unspecified; F31.9 Bipolar disorder, unspecified; D64.9 Anemia, unspecified; B95.2 Enterococcus as the cause of diseases classified elsewhere; Y84.6 Urinary catheterization as the cause of abnormal reaction of the patient, or of later complication, without mention of misadventure at the time of the procedure; F03.90 Unspecified dementia, unspecified severity, without behavioral disturbance, psychotic disturbance, mood disturbance, and anxiety; N31.9 Neuromuscular dysfunction of bladder, unspecified; E11.9 Type 2 diabetes mellitus without complications; Z91.048 Other nonmedicinal substance allergy status; Z79.899 Other long term (current) drug therapy; Z91.012 Allergy to eggs; Z23 Encounter for immunization
CPT/HCPCS: J0696; J0878; J1335; J1644; J2543; J7030; Q3014

== ENCOUNTER 2023-06-08 13:56 | Day surgery (SDC) | payer MEDICARE, MEDICAID ==
[~2023-06-08] VITALS: Ht 154.9 cm; Wt 58.2 kg
[~2023-06-08 13:56] MED LIST changes: +CUBICIN 500MG500 MG IV; +DULCOLAX S10 MG/SUPP RC; +INVANZ INJ1 G/VIAL IV
[2023-06-08] MEDS ORDERED: VOSOL 15 ML15 M1 OT (15:34)
[2023-06-08] MEDS ORDERED: ALBUTEROL0.83 MG/ML IH (15:36)
[2023-06-08] MEDS ORDERED: GENTLE LAXATIVE10 MG RC (15:37)
[2023-06-08] MEDS ORDERED: LR 1,000 ML IV SCH (15:45)
[2023-06-08] MEDS ORDERED: DITROPAN 5MG TAB5 MG PO (15:48)
[2023-06-08] MEDS ORDERED: MILK OF MA400 MG/52 (15:49)
[2023-06-08 15:50] VITALS: BP 117/62; PULSE 88; TEMP 98
[2023-06-08] MEDS ORDERED: OCREVUS300 MG/10 IV (15:55)
[2023-06-08] MEDS ORDERED: IMODIUM A-D2 MG PO (15:56)
[2023-06-08] MEDS ORDERED: NORCO 325 MG-51 TAB PO (15:57)
[2023-06-08] MEDS ORDERED: MULTI-VITAMIN W1 TA1 PO (15:57)
[2023-06-08] MEDS ORDERED: Midazolam 2 MG/2 ML VIAL ONE (16:26)
[2023-06-08 16:40] VITALS: BP 107/60; PULSE 92; TEMP 97.4
--- NOTE | 2023-06-08 16:40 | NUR ---
PATIENT ARRIVES AT THIS TIME ACOCMPANIED BY SLASHER HAND AND SENIOR INSIGHT MANAGER. PATIENT TRANSFERRED IN BED TO [facility]. PATIENT IS DROWSY AT THIS TIME BUT DOES AROUSE TO NAME, DENIES ANY PAIN OR DISCOMFORT AT THIS TIME, CURRENTLY ON 2L VIA NC AND O2 IS WNL. KRISHNAN CATHETER IN PLACE WITH LIGHT YELLOW CLEAR DRAINAGE. SPONTANEOUS RESPIRATIONS NOTED. CALL MADE BY [facility] TO MOBILIZE JAIL TO DISPATCH [facility]UNTER DUE TO THEM BEING LOCATED 45 MINUTES AWAY. WILL CONTINUE TO MONITOR AT THIS TIME.
[2023-06-08 16:45] VITALS: BP 114/68; PULSE 85
[2023-06-08] MEDS ORDERED: Hyoscyamine 0.125 MG Sublingual TAB SL PRN (16:45)
[2023-06-08] MEDS ORDERED: Acetaminophen 325 MG TAB PO PRN (16:45)
[2023-06-08] MEDS ORDERED: Naloxone 0.4 MG/ML VIAL IV PRN (16:45)
[2023-06-08 17:00] VITALS: BP 100/67; PULSE 84
[2023-06-08 17:20] VITALS: BP 138/74; PULSE 80
--- NOTE | 2023-06-08 17:45 | NUR ---
PATIENT TRANSFERRED TO AT THIS [facility] ASSISTED MY MULTIPLE STAFF USING DRAW SHEET. PATIENT IV REMOVED FROM RIGHT HAND AND CATHETER TIP INTACT, GAUZE AND KOBAN IN PLACE. PATIENT WAS ABLE TO SIGN HER OWN DISCHARGE PAPERWORK AT THIS TIME AND VERBALIZED UNDERSTANDING, LONG TERM CAREGIVER AT BEDSIDE WELL. ESCORTED TO HOME BOUND VEHICLE DRIVEN BY LONG TERM CAREGIVER.
== END 2023-06-08 17:45 | disposition home or self-care (01) ==
LOC: SDCO 13:56
DX: Z46.6 Encounter for fitting and adjustment of urinary device (principal); Z99.81 Dependence on supplemental oxygen
CPT/HCPCS: J2250; J7120